=== PATIENT | female | born 1985 | race Caucasian/White ===

== ENCOUNTER 2018-08-02 14:01 | Emergency (ER) | payer OTHER, SELFPAY ==
[2018-08-02 14:04] VITALS: BP 140/82; PULSE 84; RESP 16; TEMP 37.1; O2SAT 100
--- NOTE | 2018-08-02 14:14 | W.ED.GENAD ---
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 Has a very superficial wound to the left lateral thumb that is 0.5cm. I placed a tourniquet and given how superficial it was cleaned it and placed skin adhesive on the wound. Will d/c, return precautions for infection given. Has full rom of the thumb and intact sensation so doubt tendon or nerve injury Differential Diagnosis left thumb avulsion, abrasion, lac HPI General Mode of arrival: ambulatory. Date/Time Provider Initiated Documentation: 08/02/18 14:03. Limitations to Documentation: no limitations. Information obtained by: patient. History of Present Illness 33 year old F presents to the emergency department with the chief complaint of left thumb injury, described as moderate, Quality is described as aching, and is localized to the left and upper extremity. Patient reports no radiation. Patient started experiencing this hour(s) (1) and it has been constant. No relieving factors improve symptom(s), No exacerbating factors reported . Patient did receive the following treatments prior to arrival, none Related Data Home Medications Medication Instructions Recorded Confirmed Unknown [No Known Home Meds] 08/02/18 08/02/18 Allergies Allergy/AdvReac Type Severity Reaction Status Date / Time promethazine Allergy Unknown Rash, Unverified 08/02/18 14:07 tongue swelling General Stated Complaint: Laceration ANA: 4 Review of Systems Review of Systems All systems reviewed & are unremarkable except as noted in HPI and below Constitutional Denies chills and Denies fever(s) Cardiovascular Denies chest pain and Denies dyspnea Respiratory Denies dyspnea Gastrointestinal Denies abdominal pain Genitourinary Denies dysuria Integumentary/Breasts Denies rash PFSH Family History Mother No problems noted. Father Substance abuse Sister No problems noted. Brother No problems noted. Brother No problems noted. Grandmother Essential hypertension Maternal Aunt Essential hypertension Medical History Anxiety Constipation Depression GERD (gastroesophageal reflux disease) HSV-2 (herpes simplex virus 2) infection Obesity Social History Smoking/Tobacco Use Status: Never Surgical History Spinal Surgery Exam Const General: no acute distress Orientation: alert HENMT Head: normal to inspection Ears: external ears normal General nose exam: external nose normal Mouth: moist mucous membranes Eyes General: appearance normal, both eyes and all related structures Neck Neck: normal visual inspection Resp Effort & Inspection: normal respiratory effort and able to speak in complete sentences Cardio Rate: regular rate Skin General skin exam: no rashes or lesions noted Neuro General: alert and oriented x3 Psych Mental Status: mental status grossly normal Course Vital Signs Temperature 37.1 C 08/02/18 14:04 Pulse 84 08/02/18 14:04 Respiratory Rate 16 08/02/18 14:04 Blood Pressure 140/82 08/02/18 14:04 Pulse Oximetry 100 08/02/18 14:04 Temperature 37.1 C 08/02/18 14:04 Pulse 84 08/02/18 14:04 Respiratory Rate 16 08/02/18 14:04 Respiratory Effort 08/02/18 14:06 Blood Pressure 140/82 08/02/18 14:04 Blood Pressure Position Sitting 08/02/18 14:04 Pulse Oximetry 100 08/02/18 14:04 Oxygen Delivery Method Room Air 08/02/18 14:04 Oxygen Flow Rate 0 08/02/18 14:04 Pain Level 5 08/02/18 14:04
--- NOTE | 2018-08-02 14:17 | ED.GENADUL_ITS ---
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 Has a very superficial wound to the left lateral thumb that is 0.5cm. I placed a tourniquet and given how superficial it was cleaned it and placed skin adhesive on the wound. Will d/c, return precautions for infection given. Has full rom of the thumb and intact sensation so doubt tendon or nerve injury Differential Diagnosis left thumb avulsion, abrasion, lac HPI General Mode of arrival: ambulatory . Date/Time Provider Initiated Documentation: 08/02/18 14:03 . Limitations to Documentation: no limitations . Information obtained by: patient . History of Present Illness 33 year old F presents to the emergency department with the chief complaint of left thumb injury, described as moderate, Quality is described as aching, and is localized to the left and upper extremity. Patient reports no radiation. Patient started experiencing this hour(s) (1) and it has been constant. No relieving factors improve symptom(s), No exacerbating factors reported . Patient did receive the following treatments prior to arrival, none Related Data Home Medications Medication Instructions Recorded Confirmed Unknown [No Known Home Meds] 08/02/18 08/02/18 Allergies Allergy/AdvReac Type Severity Reaction Status Date / Time promethazine Allergy Unknown Rash, Unverified 08/02/18 14:07 tongue swelling General Stated Complaint: Laceration ANA: 4 Review of Systems Review of Systems All systems reviewed & are unremarkable except as noted in HPI and below Constitutional Denies chills and Denies fever(s) Cardiovascular Denies chest pain and Denies dyspnea Respiratory Denies dyspnea Gastrointestinal Denies abdominal pain Genitourinary Denies dysuria Integumentary/Breasts Denies rash PFSH Family History Mother No problems noted. Father Substance abuse Sister No problems noted. Brother No problems noted. Brother No problems noted. Grandmother Essential hypertension Maternal Aunt Essential hypertension Medical History Anxiety Constipation Depression GERD (gastroesophageal reflux disease) HSV-2 (herpes simplex virus 2) infection Obesity Social History Smoking/Tobacco Use Status: Never Surgical History Spinal Surgery Exam Const General: no acute distress Orientation: alert HENMT Head: normal to inspection Ears: external ears normal General nose exam: external nose normal Mouth: moist mucous membranes Eyes General: appearance normal, both eyes and all related structures Neck Neck: normal visual inspection Resp Effort & Inspection: normal respiratory effort and able to speak in complete sentences Cardio Rate: regular rate Skin General skin exam: no rashes or lesions noted Neuro General: alert and oriented x3 Psych Mental Status: mental status grossly normal Course Vital Signs Temperature 37.1 C 08/02/18 14:04 Pulse 84 08/02/18 14:04 Respiratory Rate 16 08/02/18 14:04 Blood Pressure 140/82 08/02/18 14:04 Pulse Oximetry 100 08/02/18 14:04 Temperature 37.1 C 08/02/18 14:04 Pulse 84 08/02/18 14:04 Respiratory Rate 16 08/02/18 14:04 Respiratory Effort 08/02/18 14:06 Blood Pressure 140/82 08/02/18 14:04 Blood Pressure Position Sitting 08/02/18 14:04 Pulse Oximetry 100 08/02/18 14:04 Oxygen Delivery Method Room Air 08/02/18 14:04 Oxygen Flow Rate 0 08/02/18 14:04 Pain Level 5 08/02/18 14:04
== END 2018-08-02 14:31 | disposition home or self-care (01) ==
LOC: ER 14:33
PROVIDERS: Emergency Provider Emergency Medicine; PCP Nurse Practitioner Family
DX: S61.012A Laceration without foreign body of left thumb without damage to nail, initial encounter (principal); W26.0XXA Contact with knife, initial encounter
CPT/HCPCS: 12001

== ENCOUNTER 2018-10-28 16:54 | Outpatient (REF) | payer OTHER, SELFPAY ==
[2018-10-30 14:39] LABS: Chlamydia Result Negative; GC Result Negative; Specimen Description VAGINAL
== END 2018-10-28 17:14 ==
LOC: LBN 16:54
PROVIDERS: PCP Nurse Practitioner Family; Visit Provider Nurse Practitioner Family
DX: N89.8 Other specified noninflammatory disorders of vagina (principal); Z11.3 Encounter for screening for infections with a predominantly sexual mode of transmission
CPT/HCPCS: 87491; 87591; 87480; 87510; 87660

== ENCOUNTER 2019-06-15 15:21 | Emergency (ER) | payer OTHER, SELFPAY ==
[2019-06-15 15:30] VITALS: BP 142/77; PULSE 98; RESP 20; TEMP 36.8; O2SAT 98
--- NOTE | 2019-06-15 17:06 | DI.CT_ITS ---
EXAM: CT ABDOMEN PELVIS WO CLINICAL HISTORY: flank pain/rib pain left. TECHNIQUE: The exam was performed according to the usual protocol without intravenous contrast MATER IAL. COMPARISON: ABD PELVIS WO CONTRAST from 01/24/2016 FINDINGS: The liver is intact. The gallbladder is normal. There are no stones or ductal dilatation. There is mi ld haziness of the peripancreatic fat about the region of the pancreatic head, the pancreas is otherw ise unremarkable. The spleen and adrenals are unremarkable. The kidneys are normal. There is no ev idence of obstruction. Scattered colonic diverticula are identified, there is no evidence of diverti culitis. No evidence of an acute appendix. There is no evidence of free air or free fluid in the in traperitoneal space. There is no evidence of an abdominal aortic aneurysm. There is no lymphadenopa thy. The bladder is intact. A 2 cm right ovarian cyst is seen. Degenerative bony changes are identified with a vacuum disc at L 4-5 and lower lumbar posterior element degenerative changes. The soft tissue s are unremarkable. IMPRESSION: There is some stranding in the peripancreatic fat in the region of the pancreatic head. This could be seen in early pancreatitis, these findings to be correlated with the patient's clinical and laborato ry findings. There is no CT evidence of obstructive uropathy.
[2019-06-15 17:23] LABS: Bilirubin Negative (Negative); Blood Large (Negative); Clarity Clear (Clear); Glucose Negative (Negative); Ketones Negative (Negative); Leukocyte Esterase Negative (Negative); Nitrite Negative (Negative); Specific Gravity 1.025 (1.005-1.025); Urobilinogen 0.2 EU/dL (Up TO 0.2); pH 5.5 (5-8)
[2019-06-15 17:28] LABS: C & S Indicated? No
--- NOTE | 2019-06-15 18:40 | DI.VRAD_ITS ---
PROCEDURE INFORMATION: Exam: CT Abdomen and Pelvis Without Contrast Exam date and time: 06/15/2019 6:12 PM Clinical history: 34 years old, female; Abdominal pain; Other: Flank pain TECHNIQUE: Imaging protocol: Computed tomography of the abdomen and pelvis without contrast. COMPARISON: No relevant prior studies available. FINDINGS: Liver: Unenhanced liver appears unremarkable. Gallbladder and bile ducts: Gallbladder is normal. Pancreas: There is mild haziness of the peripancreatic fat about the region of the head of the pancreas. Pancreas is otherwise unremarkable. Spleen: Spleen is unremarkable. Adrenals: No adrenal mass is present. Kidneys and ureters: The kidneys have a normal unenhanced morphology without evidence of hydronephrosis. Stomach and bowel: There is scattered colonic diverticulosis without evidence of diverticulitis. Appendix: No evidence of appendicitis. Intraperitoneal space: Unremarkable. No free air. No significant fluid collection. Vasculature: Unremarkable. No abdominal aortic aneurysm. Lymph nodes: Unremarkable. No enlarged lymph nodes. Bladder: Unremarkable as visualized. Reproductive: 2 cm right ovarian cyst. Bones/joints: Degenerative disc disease with vacuum disc phenomenon L4-5 with lower lumbar posterior element degenerative changes. Soft tissues: Unremarkable. IMPRESSION: 1. Mild haziness of the peripancreatic fat about the region of head of pancreas. This can be seen in cases of early pancreatitis. Please correlate with the patient's laboratory findings and clinical exam. Old 2. No current CT evidence of obstructive uropathy. Dictated and Authenticated by: Hank Rivera MD. Ordering:AVA Connell MD
[2019-06-15] MEDS: Normal Saline 1,000 ML 1000 ML IV (18:58)
[2019-06-15] MEDS: Acetaminophen 500 MG TAB 1000 MG PO (19:02)
[2019-06-15 19:22] LABS: Abs Immature Grans 0.03 k/cumm (0.0-0.09); Absolute Eosinophil Count 0.12 k/cumm (0.0-0.7); Absolute Monocyte Count 0.71 k/cumm (0.11-0.7); Absolute Neutrophil Count 6.32 k/cumm (1.2-6.7); Basophils % 0.5; Eosinophils % 1.1; HCT 38.5 % (36.0-46.0); HGB 12.6 g/dL (12.0-15.5); Immature Grans % 0.3; Lymphocytes % 34.7; Mean Corp. HGB Concentration 32.7 g/dL (32.0-36.0); Mean Corpuscular Hemoglobin 26.3 pg (27.0-33.0); Mean Corpuscular Volume 80.2 fL (80-95); Mean Platelet Volume 9.2 fL (8.0-11.0); Monocytes % 6.4; Platelet Count 414 x1000/uL (130-400); RBC Distribution Width 14.9 % (11.7-14.6); White Blood Cell Count 11.08 k/cumm (4.4-10.8)
[2019-06-15 19:23] LABS: Absolute Basophil Count 0.06 k/cumm (0.0-0.2); Absolute Lymphocyte Count 3.84 k/cumm (1.2-3.4)
[2019-06-15 19:34] LABS: ALT 29 U/L (14-59); AST 8 U/L (15-37); Albumin 3.9 g/dL (3.4-5.0); Alkaline Phosphatase 80 U/L (46-116); Anion Gap 11.9 mmol/L (3-11); BUN 14 mg/dL (7-18); Bilirubin, Total 0.4 mg/dL (0.2-1.0); CO2 24.1 mmol/L (21.0-32.0); CREATININE 0.59 mg/dL (0.55-1.02); Calcium 8.8 mg/dL (8.5-10.1); Chloride 101 mmol/L (98-107); Glucose 88 mg/dL (70-100); Lipase 125 U/L (73-393); Potassium 3.5 mmol/L (3.5-5.1); Sodium 137 mmol/L (136-145); Total Protein 8.1 g/dL (6.4-8.2)
--- NOTE | 2019-06-15 19:45 | DI.RAD_ITS ---
EXAM: XR CHEST 2V PA LATERAL INDICATION: LT RIB PAIN COMPARISON: ABD FLAT UPRIGHT PA CHEST from 07/13/2011 TECHNIQUE: 2D digital imaging was performed. FINDINGS: The lungs are unremarkable. No pleural effusion or pneumothorax. The heart is not enlarged. Bony str uctures are unremarkable. IMPRESSION: No evidence of acute cardiopulmonary disease.
--- NOTE | 2019-06-15 20:04 | DI.VRAD_ITS ---
PROCEDURE INFORMATION: Exam: XR Chest, 2 Views Exam date and time: 06/15/2019 7:03 PM Clinical history: 34 years old, female; Chest wall pain; Prior surgery; Surgery date: 6+ months; Patient HX: L sided rib pain, PT placed a bb marker at site of pain. This pain has happened before since low back surgery TECHNIQUE: Imaging protocol: XR of the chest Views: 2 views. COMPARISON: No relevant prior studies available. FINDINGS: Lungs: Unremarkable. No consolidation. Pleural space: Unremarkable. No pleural effusion. No pneumothorax. Heart/Mediastinum: Unremarkable. No cardiomegaly. Bones/joints: Unremarkable. IMPRESSION: No evidence of active pulmonary disease. Dictated and Authenticated by: Hank Rivera MD. Ordering:AVA Connell MD
[2019-06-15 21:16] VITALS: BP 111/60; PULSE 80; RESP 18; O2SAT 95
--- NOTE | 2019-06-15 21:21 | ED.GENADUL_ITS ---
Discharge Plan Disposition Patient Disposition: HOME Condition: Good Discharge Details Chief Complaint: Chest/Rib Clinical Impression: Back pain Primary Care Provider: Rosalia Cabral ED Provider: Becki Elias Home Meds and New Rx's Prescriptions: New omeprazole 20 mg capsule,delayed release(DR/EC) 20 mg PO DAILY Qty: 14 RF: 0 Discharge Instructions Instructions: Back Pain (ED) Additional Instructions: Push fluids by mouth. Rest activities as tolerated. Follow-up with your primary care doctor tomorrow as scheduled regarding CAT scan finding of inflammatory changes near the head of the pancreas which are nonspecific. Avoid drinking alcohol. Use omeprazole as prescribed. Return for any worsening or concerns sooner if needed. Discharge Data Discharge Date/Time-TO BE ENTERED AT DEPARTURE: 06/15/19 21:40 Medical Decision Making Patient presents for concerns of left-sided back pain. Patient reports pain radiates out to the left lateral chest and left flank. Patient denies significant abdominal pain or ill feeling. Patient does report the pain is significantly worse with range of motion. Mildly reproducible with palpation along the chest wall. Patient denies palpitation, difficulty breathing shortness of breath or wheezing. On exam patient does have mild CVA tenderness on the left as well as blood in the urine on urinalysis. Discussed with patient conservative treatments versus CT evaluation and labs. She would prefer CT evaluation labs at this time. I do not feel she needs a chest CAT scan at this time. Believe chest x-ray is reasonable. Patient has nothing to indicate cardiovascular abnormalities given her symptoms and increase in pain with range of motion as well as CVA tenderness. PERC criteria - 0 : low risk no indication for Ddimer. Ultimately patient's CT evaluation does reveal inflammatory changes surrounding the head of the pancreas consistent with possible early pancreatitis. Patient's lipase is normal. Patient admits to drinking alcohol regularly possible chronic pancreatitis present. Patient received IV fluid in the emergency room. Patient has benign abdominal exam at this time. Vital signs are stable. Patient advised to stop drinking alcohol. Patient also reports very regular reflux. Discussed conservative treatments as well as use of omeprazole. Will trial omeprazole. Patient does not follow-up with her primary care doctor tomorrow during which time she can follow-up with CT findings. Patient is a plan of care HPI General Date/Time Provider Initiated Documentation: 06/15/19 17:04 . HPI Narrative: Patient presents for complaints of left chest and back pain. Patient reports she is concerned for worsening pain. Patient reports she has at the present present for several years intermittently certainly worse than last few days. Patient denies specific injury or trauma. Patient denies fever, chills. Patient reports pain is significantly worse with range of motion. Patient denies difficulty breathing or shortness of breath or wheezing. Patient is a non-smoker. Patient admits to alcohol regularly. Denies headache or dizziness. No urinary urgency, frequency or dysuria. No changes in bowels recently. Patient does report a history of lumbar spine surgery 3 years ago. Related Data Home Medications Medication Instructions Recorded Confirmed omeprazole 20 mg PO DAILY #14 cap 06/15/19 Previous Rx's Medication Instructions Recorded omeprazole 20 mg PO DAILY #14 cap 06/15/19 Allergies Allergy/AdvReac Type Severity Reaction Status Date / Time promethazine Allergy Unknown Rash, Unverified 06/15/19 15:32 tongue swelling General Stated Complaint: Chest/Rib ANA: 3 Review of Systems Review of Systems Narrative: CONSTITUTIONAL: The patient denies fevers, chills. EYES: Denies vision changes, blurry vision, or eye pain. ENT: Denies hearing changes, tinnitus, vertigo, sore throat. CARDIAC: Left lateral chest pain, no SOB. Denies palpitations. Denies difficulty breathing. RESPIRATORY: Denies cough, sputum. Denies difficulty breathing. GASTROINTESTINAL: Denies abdominal pain, changes in bowel, vomiting or nausea. GENITOURINARY: Denies dysuria, or frequency of urination. MUSCULOSKELETAL: Denies Joint pain, gait changes. Chest pain worse with range of motion NEUROLOGIC: Denies headaches, Denies focal weakness. Denies numbness. INTEGUMENT: Denies rashes. PSYCHIATRIC: Denies behavior changes. Denies anxiety or depression. ENDOCRINOLOGY: Denies fatigue. PSYCHIATRY: Denies depression, agitation or anxiety ROS Unobtainable: All systems reviewed & are unremarkable except as noted in HPI and below [facility] Medical History Anxiety Constipation Depression GERD (gastroesophageal reflux disease) HSV-2 (herpes simplex virus 2) infection Obesity Surgical History Spinal Surgery 2015. L4-5 decompression for herniated disc causing LE pain. [facility] [place]. Family History Mother No problems noted. Father Substance abuse EtOH Sister No problems noted. Brother No problems noted. Brother No problems noted. 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 Well hydrated. Alert and alert. HENMT: Head nomocephalic, normal to inspection. Atraumatic. Hearing grossly normal. EYES: General normal appearance. Alignment normal. Eyelids normal. Conjunctiva normal. NECK: Normal visual inspection. FROM. Trachea midline. No Midline tenderness. CHEST: Normal insepection of the chest. RESP: Normal respiratory effort. Speaking full sentences. No cough. No audible wheezing. No retractions. CARDIO: No JVD. Back; left CVA tenderness noted with palpation. Mild lumbar spine tenderness with palpation Abdomen; no significant abdominal pain with palpation. No distention. Bowel sounds present all 4 quadrants MUSCULOSKELETAL: Normal Gait. FROM of all extremities. SKIN: Normal. Dry. No rashes. NEURO: Alert and awake. Speech clear. PSYCH: Normal affect. Cooperative. Course Vital Signs Vital signs: Vital Signs Temperature 36.8 C 06/15/19 15:30 Pulse 98 H 06/15/19 15:30 Respiratory Rate 20 06/15/19 15:30 Blood Pressure 142/77 H 06/15/19 15:30 Pulse Oximetry 98 06/15/19 15:30 Temperature 36.8 C 06/15/19 15:30 Temperature Source Temporal Artery Scan 06/15/19 15:30 Pulse 80 06/15/19 21:16 Respiratory Rate 18 06/15/19 21:16 Respiratory Effort Non-Labored 06/15/19 17:37 Respiratory Depth Normal 09/24/19 17:37 Respiratory Pattern Normal 06/15/19 17:37 Blood Pressure 111/60 06/15/19 21:16 Blood Pressure Position Sitting 06/15/19 15:30 Pulse Oximetry 95 06/15/19 21:16 Oxygen Delivery Method Room Air 06/15/19 21:16 Oxygen Flow Rate 0 06/15/19 21:16 Pain Level 2 06/15/19 20:02 Lab/Test Results Lab/Test Results: Laboratory Tests Range/Units 06/15/19 06/15/19 06/15/19 16:35 18:50 18:50 WBC (4.4-10.8) k/cumm 11.08 H RBC (4.00-5.20) m/cumm 4.80 Hgb (12.0-15.5) g/dL 12.6 Hct (36.0-46.0) % 38.5 MCV (80-95) fL 80.2 MCH (27.0-33.0) pg 26.3 L MCHC (32.0-36.0) g/dL 32.7 RDW (11.7-14.6) % 14.9 H Plt Count (130-400) x1000/uL 414 H MPV (8.0-11.0) fL 9.2 Immature Gran % 0.3 Neutrophils % 57.0 Lymphocytes % 34.7 Monocytes % 6.4 Eosinophils % 1.1 Basophils % 0.5 Absolute Neutrophils (1.2-6.7) k/cumm 6.32 Absolute Lymphocytes (1.2-3.4) k/cumm 3.84 H Absolute Monocytes (0.11-0.7) k/cumm 0.71 H Absolute Eosinophils (0.0-0.7) k/cumm 0.12 Absolute Basophils (0.0-0.2) k/cumm 0.06 Sodium (136-145) mmol/L 137 Potassium (3.5-5.1) mmol/L 3.5 Chloride (98-107) mmol/L 101 Carbon Dioxide (21.0-32.0) mmol/L 24.1 Anion Gap (3-11) mmol/L 11.9 H BUN (7-18) mg/dL 14 Creatinine (0.55-1.02) mg/dL 0.59 Estimated GFR/1.73 m2 (mL/min/1.73m2) >= 60.00 Glucose (70-100) mg/dL 88 Calcium (8.5-10.1) mg/dL 8.8 Total Bilirubin (0.2-1.0) mg/dL 0.4 AST (15-37) U/L 8 L ALT (14-59) U/L 29 Alkaline Phosphatase (46-116) U/L 80 Total Protein (6.4-8.2) g/dL 8.1 Albumin (3.4-5.0) g/dL 3.9 Lipase (73-393) U/L 125 Urine Color (Yellow) Yellow Urine Clarity (Clear) Clear Urine pH (5-8) 5.5 Ur Specific [place] (1.005-1.025) 1.025 Urine Protein (Negative) mg/dL Negative Urine Ketones (Negative) mg/dL Negative Urine Blood (Negative) Large H Urine Nitrite (Negative) Negative Urine Bilirubin (Negative) Negative Urine Urobilinogen (Up TO 0.2) EU/dL 0.2 Ur Leukocyte Esterase (Negative) Negative Urine RBC Not Applicable Urine WBC Not Applicable Ur Epithelial Cells Not Applicable Urine Crystals Not Applicable Urine Bacteria Not Applicable Urine Mucus Not Applicable Ur Culture Indicated? No Urine Glucose (Negative) mg/dL Negative POC- Test(urine) Negative
[2019-06-15 21:38] VITALS: BP 111/60; PULSE 80; RESP 18; TEMP 36.8; O2SAT 95
[2019-06-15 23:03] LABS: Bacteria Negative HPF (Negative); Epithelial Cells Few HPF (Negative); RBC Negative (0-2)
[2019-06-15 23:04] LABS: Casts Negative LPF (Negative); Crystals Many Amorphous HPF (Negative); Mucus Negative (Negative)
[2019-06-15 23:06] LABS: WBC Negative HPF (0-5)
== END 2019-06-15 21:40 | disposition home or self-care (01) ==
PROVIDERS: Emergency Provider Physician Assistant; PCP Nurse Practitioner Family
DX: M54.6 Pain in thoracic spine (principal); R10.9 Unspecified abdominal pain; R07.89 Other chest pain; R93.5 Abnormal findings on diagnostic imaging of other abdominal regions, including retroperitoneum
CPT/HCPCS: 36415; 80053; 81025; 83690; 96360; 99285; 71046; 74176; 81003; 81015; 85025; 99284

== ENCOUNTER 2019-09-23 16:00 | Outpatient (REF) | payer OTHER, SELFPAY ==
[2019-09-23 19:12] LABS: Bilirubin Negative (Negative); Blood Moderate (Negative); Clarity Clear (Clear); Glucose Negative (Negative); Ketones Negative (Negative); Leukocyte Esterase Negative (Negative); Nitrite Negative (Negative); Specific Gravity 1.025 (1.005-1.025); Urobilinogen 0.2 EU/dL (Up TO 0.2)
[2019-09-23 19:35] LABS: Bacteria Rare HPF (Negative); C & S Indicated? C&S Done As Ordered; Crystals Negative HPF (Negative); Epithelial Cells Moderate HPF (Negative); Mucus Trace (Negative); WBC 0-2 HPF (0-5)
== END 2019-09-23 16:20 ==
LOC: LBN 16:00
PROVIDERS: PCP Nurse Practitioner Family; Visit Provider Nurse Practitioner Adult Health
DX: R30.0 Dysuria (principal)
CPT/HCPCS: 81003; 81015; 87086

== ENCOUNTER 2020-04-21 12:22 | Outpatient (REF) | payer OTHER, SELFPAY | END 2020-04-21 12:42 | LOC: LBN 12:22 | PROVIDERS: PCP Nurse Practitioner Adult Health; Visit Provider Nurse Practitioner Adult Health | DX: R35.0 Frequency of micturition (principal); R82.4 Acetonuria | CPT/HCPCS: 87086 ==

== ENCOUNTER 2021-02-13 02:26 | Outpatient (CLI) | payer OTHER, SELFPAY ==
--- NOTE | 2021-02-13 15:40 | DI.RAD_ITS ---
Exam(s) XR THORACIC SPINE COMPLETE EXAM: XR THORACIC SPINE COMPLETE CLINICAL HISTORY: M54.6 PAIN T-SPINE G89.29 CHRONIC PAIN R10.9 ABD PAIN. TECHNIQUE: 2D digital imaging was performed. COMPARISON: No exams were available for comparison FINDINGS: BONES: There is no fracture or destructive lesion. The vertebral bodies and posterior elements are un remarkable. DISKS:Mild to moderate biconvex scoliosis in the upper and mid thoracic spine.. Minimal degenerative disc changes. Interverebral disc spaces are maintained. SOFT TISSUE: Visualized lungs are clear. Heart size is normal. IMPRESSION: Scoliosis and mild degenerative changes. DATA REPOSITORY: RADIATION DOSE DELIVERED:
== END 2021-02-13 02:46 ==
PROVIDERS: PCP Nurse Practitioner Adult Health; Visit Provider Nurse Practitioner Adult Health
DX: M54.6 Pain in thoracic spine (principal); R10.9 Unspecified abdominal pain; G89.29 Other chronic pain; M51.34 Other intervertebral disc degeneration, thoracic region; M41.84 Other forms of scoliosis, thoracic region
CPT/HCPCS: 72072

== ENCOUNTER 2021-06-12 21:15 | Emergency (ER) | payer OTHER, SELFPAY ==
[2021-06-12 21:24] VITALS: BP 145/92; PULSE 90; RESP 18; TEMP 36.8; O2SAT 100
[2021-06-12 21:43] LABS: Bilirubin Negative (Negative); Blood Small (Negative); Clarity Sl Cloudy (Clear); Glucose Negative (Negative); Ketones Negative (Negative); Leukocyte Esterase Negative (Negative); Nitrite Negative (Negative)
--- NOTE | 2021-06-12 21:43 | ED.GENADUL_ITS ---
Discharge Plan Disposition Patient Disposition: HOME Condition: Stable Discharge Details Clinical Impression: Lower back pain, Cystitis Primary Care Provider: Melodie Glaser ED Provider: Altaf Hammond Home Meds and New Rx's Prescriptions: New nitrofurantoin monohyd/m-cryst [Macrobid] 100 mg capsule 100 mg PO Q12H 5 Days Qty: 10 RF: 0 Continued oxybutynin chloride 5 mg tablet 5 mg PO DAILY AM Qty: 90 RF: 3 acetaminophen 500 mg tablet 1,000 mg PO TID Qty: 42 RF: 0 naproxen 500 mg tablet 250 - 500 mg PO BID PRN (Reason: pain) Qty: 30 RF: 1 mupirocin 2 % ointment 1 applic topical TID PRN (Reason: boil/folliculitis (mild)) Qty: 15 RF: 0 Discharge Instructions Additional Instructions: Your urine showed some evidence of a possible infection you can take 1000mg tylenol and 600mg ibuprofen every 6 hours as needed for pain if symptoms continue follow up with your primary care provider within a week if you feel more ill, have severe worsening pain, fevers or persistent vomit return to the emergency department Medical Decision Making 36 yo female with hx of overactive bladder and gerd, comes in with a day of urinary frequency and bilateral lower back pain that radiates to the suprapubic abdomen. Denies fevers, vomit, chills, chest pain. She denies any trauma. She states the pain is 5/10. She has no cva tenderness, localizes the pain to the lower back bilaterally. no midline tenderness. no saddle anesthesia. normal gait. Denies ivdu. History is incosistent with kidney stone, suspect possible cystitis will obtain ua. She has no abdomen tenderness on exam so doubt surgical pathology such as appendicitis and no llq tenderness to suspect diverticulitis. If ua unremarkable will consider renal colic ct. ua has some bacteria, small red cells, given her symptoms will treat as possible cystitis with macrobid, no findings to suggest pyelo on exam or history. Discussed results with patient and after discussion with patient will hold on renal colic ct given she her history is unlikely to be akidney stone. she will follow up with her pcp if symptoms continue within a week and return precautions given Differential Diagnosis Differential Diagnosis: cystitis, bladder spasm, overactive bladder Medical Records Medical records reviewed: Yes I reviewed the patient's medical records. Lab Data Lab results reviewed: Yes I reviewed the patient's lab results. HPI General Mode of arrival: ambulatory . Date/Time Provider Initiated Documentation: 06/12/21 21:16 . Limitations to Documentation: no limitations . Information obtained by: patient . History of Present Illness 36 year old F presents to the emergency department with the chief complaint of low back pain, described as moderate, with intensity rated at 5. Quality is described as aching, and is localized to the back. Patient started experiencing this day(s) (1) and it has been intermittent. No relieving factors improve symptom(s), No exacerbating factors reported . Patient notes denies chest pain, fever/chills and nausea/vomiting. Patient did receive the following treatments prior to arrival, none Related Data Home Medications Medication Instructions Recorded Confirmed acetaminophen 500 mg tablet 1,000 mg PO TID #42 tab 12/27/19 06/12/21 oxybutynin chloride 5 mg tablet 5 mg PO DAILY AM #90 tab 06/28/20 06/12/21 naproxen 500 mg tablet 250 - 500 mg PO BID PRN #30 tab 02/12/21 06/12/21 mupirocin 2 % topical ointment 1 applic TOPICAL TID PRN #15 g 04/18/21 06/12/21 nitrofurantoin monohyd/m-cryst 100 mg PO Q12H 5 Days #10 cap 06/12/21 [Macrobid] Previous Rx's Medication Instructions Recorded acetaminophen 500 mg tablet 1,000 mg PO TID #42 tab 12/27/19 oxybutynin chloride 5 mg tablet 5 mg PO DAILY AM #90 tab 06/28/20 naproxen 500 mg tablet 250 - 500 mg PO BID PRN #30 tab 02/12/21 mupirocin 2 % topical ointment 1 applic TOPICAL TID PRN #15 g 04/18/21 nitrofurantoin monohyd/m-cryst 100 mg PO Q12H 5 Days #10 cap 06/12/21 [Macrobid] Allergies Allergy/AdvReac Type Severity Reaction Status Date / Time promethazine Allergy Unknown Rash, Verified 06/12/21 21:31 tongue swelling General Stated Complaint: FlankPain ANA: 3 Review of Systems All systems reviewed & are unremarkable except as noted in HPI and below Constitutional Constitutional: Denies chills and Denies fever(s) Cardiovascular Cardiovascular: Denies chest pain and Denies dyspnea Respiratory Respiratory: Denies cough and Denies dyspnea Gastrointestinal Gastrointestinal: Denies nausea and Denies vomiting Musculoskeletal Musculoskeletal: Denies joint swelling [facility] Medical History (Updated 06/12/21 @ 22:20 by Altaf Hammond MD) Anxiety Constipation Depression Folliculitis of right axilla GERD (gastroesophageal reflux disease) Herniated lumbar intervertebral disc (03/16/15) S/p L4-5 decompression 2014 HSV-2 (herpes simplex virus 2) infection (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 Father Substance abuse EtOH Sister No problems noted. Brother No problems noted. Brother No problems noted. 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 Pets and animals: Yes Pets and animals: gerbil(s) Sexually active: Yes Current gender identity: female What type of physical activity do you participate in: regular exercise Frequency: 5-6 times per week Do you feel safe at home: Yes Do you feel safe in your relationship?: Yes Exam Const General: no acute distress Orientation: alert HENNY Head: normal to inspection Ears: external ears normal General nose exam: external nose normal Mouth: moist mucous membranes Eyes General: appearance normal, both eyes and all related structures Neck Neck: normal visual inspection Resp Effort & Inspection: normal respiratory effort and able to speak in complete sentences Cardio Rate: regular rate GI Palpation: soft and nontender Back/Spine/Pelvis Back: no CVA tenderness Skin General skin exam: no rashes or lesions noted Neuro General: patient alert and patient oriented x3 Extrem General: normal to inspection Psych Mental Status: mental status grossly normal Course Vital Signs Vital signs: Vital Signs Temperature 36.8 C 06/12/21 21:24 Pulse 90 06/12/21 21:24 Respiratory Rate 18 06/12/21 21:24 Blood Pressure 145/92 H 06/12/21 21:24 Pulse Oximetry 100 06/12/21 21:24 Temperature 36.8 C 06/12/21 21:24 Temperature Source Temporal Artery Scan 06/12/21 21:24 Pulse 90 06/12/21 21:24 Respiratory Rate 18 06/12/21 21:24 Respiratory Effort 06/12/21 21:32 Blood Pressure 145/92 H 06/12/21 21:24 Blood Pressure Position Sitting 06/12/21 21:24 Pulse Oximetry 100 06/12/21 21:24 Pain Level 5 06/12/21 21:24 Lab/Test Results Lab/Test Results: 06/12/21 21:37 Urine - Clean Catch Urine Culture - Pending POC- Test(urine) Negative
[2021-06-12] MEDS: Ibuprofen 600 MG TAB PO (21:47)
[2021-06-12 22:06] LABS: Bacteria Rare HPF (Negative); C & S Indicated? C&S Done As Ordered; Crystals Negative HPF (Negative); Epithelial Cells Moderate HPF (Negative); Mucus Moderate (Negative); WBC Negative HPF (0-5)
[2021-06-12] MEDS: MacroBID 100 MG CAP PO (22:22)
[2021-06-12 22:25] VITALS: BP 132/76; PULSE 74; RESP 18; O2SAT 99
== END 2021-06-12 22:26 | disposition home or self-care (01) ==
PROVIDERS: Emergency Provider Emergency Medicine; PCP Nurse Practitioner Adult Health
DX: N30.00 Acute cystitis without hematuria (principal); M54.5 Low back pain
CPT/HCPCS: 81025; 99283; 81003; 81015; 87086

== ENCOUNTER 2021-06-22 11:00 | Outpatient (REF) | payer OTHER, SELFPAY ==
[2021-06-22 14:53] LABS: Bilirubin Negative (Negative); Blood Small (Negative); Clarity Clear (Clear); Glucose Negative (Negative); Ketones Negative (Negative); Leukocyte Esterase Negative (Negative); Nitrite Negative (Negative); Specific Gravity 1.025 (1.005-1.025); Urobilinogen 0.2 EU/dL (Up TO 0.2)
[2021-06-22 15:29] LABS: WBC Negative HPF (0-5)
[2021-06-22 15:30] LABS: Bacteria Negative HPF (Negative); C & S Indicated? No; Crystals Negative HPF (Negative); Epithelial Cells Few HPF (Negative); Mucus Negative (Negative)
== END 2021-06-22 11:01 | disposition home or self-care (01) ==
LOC: LBN 11:00
PROVIDERS: PCP Nurse Practitioner Adult Health; Visit Provider Nurse Practitioner Adult Health
DX: R31.9 Hematuria, unspecified (principal); R80.9 Proteinuria, unspecified
CPT/HCPCS: 81003; 81015

== ENCOUNTER 2021-09-11 18:51 | Outpatient (REF) | payer OTHER, SELFPAY ==
[2021-09-11 19:38] LABS: Bilirubin Negative (Negative); Blood Small (Negative); Clarity Cloudy (Clear); Glucose Negative (Negative); Ketones Negative (Negative); Leukocyte Esterase Negative (Negative); Nitrite Negative (Negative); Specific Gravity >= 1.030 (1.005-1.025); Urobilinogen 0.2 EU/dL (Up TO 0.2); pH 5.5 (5-8)
== END 2021-09-11 18:52 | disposition home or self-care (01) ==
LOC: LBN 18:51
PROVIDERS: PCP Nurse Practitioner Adult Health; Visit Provider Nurse Practitioner Adult Health
DX: R31.29 Other microscopic hematuria (principal)
CPT/HCPCS: 81003; 81015

== ENCOUNTER 2021-10-07 19:13 | Emergency (ER) | payer OTHER, SELFPAY ==
[2021-10-07 19:23] VITALS: BP 132/62; PULSE 98; RESP 18; TEMP 37.2; O2SAT 100
--- NOTE | 2021-10-07 19:53 | ED.GENADUL_ITS ---
Discharge Plan Disposition Patient Disposition: HOME Condition: Good Discharge Details Clinical Impression: URI (upper respiratory infection) Primary Care Provider: Melodie Glaser ED Provider: Zander Mccollum Home Meds and New Rx's Prescriptions: Continued acetaminophen 500 mg tablet 1,000 mg PO TID Qty: 42 RF: 0 mupirocin 2 % ointment 1 applic topical TID PRN (Reason: boil/folliculitis (mild)) Qty: 15 RF: 0 Discharge Instructions Instructions: Upper Respiratory Infection (ED) Additional Instructions: Please remain quarantined until your COVID-19 results are available. These can take typically 24 to 48 hours. Until then please drink plenty of fluids and take [id number] cold medication as needed. Feel free to return if you have any significant worsening of your symptoms, including severe chest pain, difficulty breathing, or other concerns. You may also contact your primary care provider for any further care needs. Stand Alone Forms: PENDING COVID-19 TESTING, Work Release Discharge Data Discharge Date/Time-TO BE ENTERED AT DEPARTURE: 10/07/21 20:50 Medical Decision Making Patient presenting to the clinic for chief complaint of pharyngitis . Patient reports symptoms stated today. Physical exam show no posterior pharynx or tonsillar erythema, no cervical lymphadenopathy, otherwise clear lung sounds and otherwise unremarkable exam. Patient has no signs of meningitis, peritonsillar abscess, retropharyngeal abscess, Feliz's angina, or life-threatening Airway infection. Conservative management discussed along with follow-up and return precautions. Centor score low so no strep preformed but Covid test sent. HPI General Mode of arrival: ambulatory . Date/Time Provider Initiated Documentation: 10/07/21 19:29 . Limitations to Documentation: no limitations . Information obtained by: patient . History of Present Illness 36 year old F presents to the emergency department with the chief complaint of Cold symptoms, described as mild, with intensity rated at 2. Quality is described as aching, and is localized to the mouth (throat). Patient reports no radiation. Patient started experiencing this day(s) (1) and it has been constant. No relieving factors improve symptom(s), No exacerbating factors reported . Patient did receive the following treatments prior to arrival, NSAID Related Data Home Medications Medication Instructions Recorded Confirmed acetaminophen 500 mg tablet 1,000 mg PO TID #42 tab 12/27/19 10/07/21 mupirocin 2 % topical ointment 1 applic TOPICAL TID PRN #15 g 04/18/21 10/07/21 Previous Rx's Medication Instructions Recorded acetaminophen 500 mg tablet 1,000 mg PO TID #42 tab 12/27/19 mupirocin 2 % topical ointment 1 applic TOPICAL TID PRN #15 g 04/18/21 Allergies Allergy/AdvReac Type Severity Reaction Status Date / Time promethazine Allergy Unknown Rash, Verified 10/07/21 19:29 tongue swelling General Stated Complaint: RespSymp ANA: 3 Review of Systems Constitutional Constitutional: Reports body ache(s), Reports chills, Reports fever(s), Reports headache(s) and Reports malaise Eyes Eyes: Denies eye discharge ENT Ears, Nose, Mouth, and Throat: Reports as per HPI, Denies ear discharge, Denies otalgia, Reports headache(s), Reports nasal congestion, Reports nasal discharge, Denies neck pain, Reports sinus pain, Reports sinus pressure, Reports sore throat and Denies throat swelling Cardiovascular Cardiovascular: Denies chest pain and Denies dyspnea Respiratory Respiratory: Reports cough and Denies dyspnea Musculoskeletal Musculoskeletal: Denies joint swelling and Denies neck pain Integumentary/Breasts Skin/Breast: Denies rash Neurologic Neurologic: Reports headache(s) Allergic/Immunologic Allergic/Immunologic: Denies throat swelling PFSH All Active Problems (Updated 10/07/21 @ 19:54 by Zander Mccollum NP) URI (upper respiratory infection) (Acute) Scoliosis of thoracic spine (Chronic) 01/2021 x-rays verified Overactive bladder (Acute) RX Oxybutynin effective (see chart note 05/16/2020) Microscopic hematuria (Chronic 01/17/16) 2015 & 2019 Obesity (BMI 30-39.9) (Acute) GERD (gastroesophageal reflux disease) (Chronic) Medical History (Updated 10/07/21 @ 19:54 by Zander Mccollum NP) Anxiety Constipation Depression Folliculitis of right axilla Herniated lumbar intervertebral disc (03/16/15) S/p L4-5 decompression 2015 HSV-2 (herpes simplex virus 2) infection (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 Father Substance abuse EtOH Sister No problems noted. Brother No problems noted. Brother No problems noted. 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 Pets and animals: Yes Pets and animals: gerbil(s) Sexually active: Yes Current gender identity: female What type of physical activity do you participate in: regular exercise Frequency: 5-6 times per week Do you feel safe at home: Yes Do you feel safe in your relationship?: Yes Exam Const General: cooperative, comfortable and no acute distress Orientation: alert and awake HENMT Head: normal to inspection, normocephalic and atraumatic Ears: hearing grossly normal bilaterally and TM's normal bilaterally General nose exam: external nose normal Face and sinus: no erythema and sinus tenderness ethmoid and maxillary Mouth: oral mucosae normal, no drooling, no muffled voice and no trismus Throat: posterior oropharynx normal Neck Neck: normal visual inspection, full ROM, no lymphadenopathy, no meningeal signs, trachea midline and supple Resp Effort & Inspection: normal respiratory effort, able to speak in complete sentences and cough Quality of cough: dry Auscultation: clear to auscultation bilaterally Cardio Rate: regular rate Rhythm: regular rhythm Heart Sounds: S1 normal, S2 normal, normal S1 and S2, no click, no gallops, no murmurs and no rubs Skin General skin exam: no rashes or lesions noted and dry skin (warm) Neuro General: patient alert, patient awake, patient oriented x3, gait normal and moves all extremities Cognition: normal cognition Speech: speech normal Course Vital Signs Vital signs: Vital Signs Temperature 37.2 C 10/07/21 19:23 Pulse 98 H 10/07/21 19:23 Respiratory Rate 18 10/07/21 19:23 Blood Pressure 132/62 10/07/21 19:23 Pulse Oximetry 100 10/07/21 19:23 Temperature 37.2 C 10/07/21 19:23 Temperature Source Oral 10/07/21 19:23 Pulse 98 H 10/07/21 19:23 Respiratory Rate 18 10/07/21 19:23 Respiratory Effort 10/07/21 19:30 Blood Pressure 132/62 10/07/21 19:23 Blood Pressure Position Sitting 10/07/21 19:23 Pulse Oximetry 100 10/07/21 19:23 Oxygen Delivery Method Room Air 10/07/21 19:23 Oxygen Flow Rate 0 10/07/21 19:23
[2021-10-09 11:29] LABS: COVID-19 RT-PCR UVMMC Result Negative (Negative)
== END 2021-10-07 20:50 | disposition home or self-care (01) ==
PROVIDERS: Emergency Provider Nurse Practitioner Family; PCP Nurse Practitioner Adult Health
DX: J06.9 Acute upper respiratory infection, unspecified (principal); Z20.822 Contact with and (suspected) exposure to COVID-19
CPT/HCPCS: 99282; U0003

== ENCOUNTER 2021-10-18 03:32 | Outpatient (CLI) | payer OTHER, SELFPAY ==
[2021-10-18 14:28] LABS: BUN 12 mg/dL (7-18); CREATININE 0.6 mg/dL (0.55-1.02); Calcium 8.7 mg/dL (8.5-10.1); Calculated LDL 115 mg/dL (<100); Chloride 102 mmol/L (98-107); Cholesterol 181 mg/dL (<200); Glucose 94 mg/dL (74-106); HDL Cholesterol 56 mg/dL (40-60); Potassium 4.1 mmol/L (3.5-5.1); Sodium 139 mmol/L (136-145); TSH (W/Ref FT4) 1.81 uIU/mL (0.36-3.74); Triglyceride 51 mg/dL (<150)
[2021-10-18 22:52] LABS: Hepatitis C Ab w Rflx HCV PCR Negative (Negative)
[2021-10-18 22:56] LABS: HIV-1/2 Ag & Ab Screen Negative (Negative)
== END 2021-10-18 03:33 | disposition home or self-care (01) ==
LOC: LBO 03:33
PROVIDERS: PCP Nurse Practitioner Adult Health; Visit Provider Nurse Practitioner Adult Health
DX: L74.510 Primary focal hyperhidrosis, axilla (principal); E66.8 Other obesity; Z11.4 Encounter for screening for human immunodeficiency virus [HIV]; Z13.1 Encounter for screening for diabetes mellitus; Z13.220 Encounter for screening for lipoid disorders; Z13.29 Encounter for screening for other suspected endocrine disorder; Z11.59 Encounter for screening for other viral diseases
CPT/HCPCS: 36415; 80048; 80061; 86803; 87389; 84443

== ENCOUNTER 2021-10-31 00:47 | Outpatient (CLI) | payer OTHER, SELFPAY ==
--- NOTE | 2021-10-31 09:00 | NS.NUTBLAN_ITS ---
Reason for visit: obesity; employee benefit for nutritional counseling. Assessment: Gricel presents for nutritional counseling for obesity. She reports that she has struggled with her weight for the past 10 years. A few years ago, she states that she was doing well with WW ([employer]) however Covid contributed to increased depression and she fell off track. Gricel endorses that depression plays heavily into her weight and eating habits as well as her physical activity. Gricel eats moderately most days. A yogurt for breakfast, chips and a cereal bar for lunch, almonds to hold her over until a late dinner, and a balanced dinner of protein, starch, vegetable. She drinks water and non- caloric beverages to stay hydrated. She does not snack. Gricel notes that her motivation to be physically active is diminished especially when she gets home from work at 1930. Gricel declines being weighed. She does not like to see her weight when she is weighed. There is a recent weight in [place] from September 2021. Nutrition Diagnosis: Class 3 (severe) obesity related to physiologic causes (depression, ?insulin resistance) and physical inactivity as evidenced by a BMI greater than 40. Intervention: We discussed the importance for Gricel to round out her breakfast and mid-day meal and to perhaps choose more whole foods. We reviewed the plate method to plan healthy meals and came up with examples of adding protein and healthy fats and vegetables. She stated she will trial the suggestions. Provided written materials regarding the plate method as well meal ideas, recipes, and tips to include more vegetables. Suggested that she add an MVI into her regimen, however she states that historically she does not tolerate MVI. We can address that issue at another visit if vitamin and mineral deficiency is suspected. With regard to her depression, I let her know that mental health counseling is out of my realm of qualifications, however addressing depression can be helpful for weight management and overall better physical health. She stated she would consider adding some counseling into her health plan. Finally, we talked about increasing physical activity. She does like to walk but not at night. Suggested that she walk before work as she doesn't go in until 11:00. Gricel stated she will trial that as well as she thought it was a good idea. Monitoring and Evaluation: Gricel is going to self monitor how she feels and how her clothes fit to evaluate the adequacy of her nutrition care plan as well as the two action plans that she came up with: 1. Add protein to breakfast and lunch. 2. Walk two days this week for 30 minutes before her shift. Gricel will assess her weight loss progress by how she feels and how her clothes fit. Gricel will follow up with me and keep me updated as to her progress.
== END 2021-10-31 00:48 | disposition home or self-care (01) ==
LOC: DS 00:48
PROVIDERS: PCP Nurse Practitioner Adult Health; Visit Provider Dietitian, Registered
DX: E66.8 Other obesity (principal); Z68.41 Body mass index [BMI] 40.0-44.9, adult; Z71.3 Dietary counseling and surveillance
CPT/HCPCS: 97802

== ENCOUNTER 2022-02-11 11:43 | Outpatient (REF) | payer OTHER, SELFPAY | END 2022-02-11 11:44 | disposition home or self-care (01) | LOC: LBN 11:43 | PROVIDERS: PCP Nurse Practitioner Adult Health; Visit Provider Family Medicine | DX: N89.8 Other specified noninflammatory disorders of vagina (principal) | CPT/HCPCS: 87480; 87510; 87660 ==

== ENCOUNTER 2022-02-25 14:10 | Outpatient (REF) | payer OTHER, SELFPAY ==
--- NOTE | 2022-02-25 13:30 | PAPFT_PTH ---
PATIENT: Gricel Hinds LOC: [facility] U#:[id number] AGE/SX: 37/F ROOM: RE02/25/[address]: Melodie Glaser APRN : 1985 BED: DIS: 02/25/2022 SPEC #: [id number] RECD: 02/25/22 15:24 STATUS: TRISTA REReed #: [id number] JACLYN: 02/25/22 13:[address]: Melodie Glaser DEPT: [facility] Cytology RECD BY: Dominique Ivory Tissues: 1 - CX/ENDOCX FOR PAP SMEARS Procedures: PAP THIN PREP/UVM Screening HPV DNA PROBE Comments: [id number]
[2022-02-26 14:44] LABS: Chlamydia Result Negative (Negative); GC Result Negative (Negative)
== END 2022-02-25 14:11 | disposition home or self-care (01) ==
LOC: LBN 14:10
PROVIDERS: PCP Nurse Practitioner Adult Health; Visit Provider Nurse Practitioner Adult Health
DX: Z11.3 Encounter for screening for infections with a predominantly sexual mode of transmission (principal); Z12.4 Encounter for screening for malignant neoplasm of cervix; Z11.51 Encounter for screening for human papillomavirus (HPV); N89.8 Other specified noninflammatory disorders of vagina
CPT/HCPCS: 87491; 87591; 88142; 87480; 87510; 87624; 87660

== ENCOUNTER 2022-06-20 01:30 | Emergency (ER) | payer OTHER, SELFPAY ==
[2022-06-20 01:38] VITALS: BP 127/76; PULSE 102; RESP 18; TEMP 36.9; O2SAT 100
--- NOTE | 2022-06-20 01:41 | ED.GENADUL_ITS ---
Discharge Plan Disposition Patient Disposition: HOME Condition: Good Discharge Details Clinical Impression: URI with cough and congestion Primary Care Provider: Melodie Glaser ED Provider: Primitivo Fajardo [place] Meds and New Rx's Prescriptions: New benzonatate 100 mg capsule 100 mg PO TID PRN (Reason: cough) Qty: 14 0RF Discharge Instructions Instructions: Upper Respiratory Infection (ED) Additional Instructions: You were seen for cough and congestion likely related to viral URI. Your vital signs and oxygenation as well as exam are reassuring. COVID testing has been sent out. You should isolate until results are returned. Rest and drink plenty of fluids. Alternate acetaminophen with ibuprofen for fever and discomfort. Use benzonatate for cough as needed. Follow-up with primary care 1 to 2 weeks if not improving. Return to ED for mental status changes, difficulty breathing, persistent chest pain, vomiting, other concerns. Stand Alone Forms: PENDING COVID-19 TESTING Medical Decision Making Patient presenting with URI with chief complaint of cough keeping her awake and causing chest pain with cough. Will swab and send out for COVID. Try Tessalon Perles for cough. Alternate acetaminophen with ibuprofen for fever and discomfort. Rest and drink plenty of fluids. Isolate until COVID results back. Follow-up with primary care 1 to 2 weeks if not improved. Return precautions provided. HPI General Mode of arrival: ambulatory . Date/Time Provider Initiated Documentation: 06/20/22 01:41 . Limitations to Documentation: no limitations . Information obtained by: patient and RN notes reviewed . HPI Narrative: Patient presents to ED with complaint of cough, congestion, runny nose, sore throat which began 1 day ago. She has been unable to sleep tonight because of persistent coughing. She has pain in her upper chest with coughing. Otherwise no pain and no shortness of breath. She has had no fever that she is aware of. She denies headache or earache. She denies any GI symptoms. She is vaccinated for COVID with 1 booster. She did not do a home COVID test. She has tried fqqm-[id number] cough and cold medications without relief. Related Data Home Medications Medication Instructions Recorded Confirmed benzonatate 100 mg capsule 100 mg PO TID PRN cough #14 caps 06/20/22 Previous Rx's Medication Instructions Recorded benzonatate 100 mg capsule 100 mg PO TID PRN cough #14 caps 06/20/22 Allergies Allergy/AdvReac Type Severity Reaction Status Date / Time promethazine Allergy Unknown Rash, Verified 06/20/22 01:41 tongue swelling General Stated Complaint: RespSymp ANA: 3 Review of Systems Narrative: 02/02 Review of Systems completed and is negative except as stated above in HPI (Systems reviewed: Const, Resp, CV, GI, Neuro) PFSH All Active Problems URI with cough and congestion (Acute) Current vaping on some days (Acute) Microscopic hematuria (Chronic 01/17/16) 2015 & 2018 Obesity (BMI 30-39.9) (Acute) Medical History Anxiety Constipation Depression GERD (gastroesophageal reflux disease) Herniated lumbar intervertebral disc (03/16/15) S/p L4-5 decompression 2014 HSV-2 (herpes simplex virus 2) infection (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 Overactive bladder RX Oxybutynin effective (see chart note 05/16/2020) Scoliosis of thoracic spine 01/2021 x-rays verified Surgical History Spinal Surgery (~2014) L4-5 decompression for herniated disc causing LE pain ([facility] [place]) Family History Father Substance abuse EtOH Grandmother Essential hypertension Maternal Aunt Essential hypertension Social History Smoking/Tobacco Use Status: Current-Occasional Tobacco Type: e-cigarettes Quit status: has quit before Smoking risk assessment performed?: Yes Alcohol Intake: current Alcohol Intake frequency: a few times a month Drug use: Never Substance use type: does not use Adopted: No Household members: spouse Housing: apartment Number of Children: 0 Communication Needs: None Education Level: high school Do you need help understanding health information?: Never 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 [employer] Pets and animals: Yes Pets and animals: cat(s) Sexually active: Yes Do you think of yourself as: bisexual Current gender identity: female What is your relationship status?: How often do you talk on the phone with friends or family?: once per week How often do you get together with friends or relatives?: twice per week Do you belong to any clubs or organized social groups?: no Panel score (0-1 are the most socially isolated patients): 2 What type of physical activity do you participate in: walking Duration: 15-30 minutes/day Frequency: 3-4 times per week Special freeman needs: No Seatbelt use: always Drive intox or ride w/intox milk tanker driver: No Do you feel safe at home: Yes Do you feel safe in your relationship?: Yes Exam Narrative Exam Narrative: Const: Obese female in NAD. HEENT: NC/AT. Normal facial exam. TMs clear bilaterally. Oropharynx clear. Clear nasal discharge present. Eyes: Normal conjunctiva and sclera. Neck: Supple. Trachea midline. Lungs: Normal respiratory effort. Lungs are clear. Cor: RRR without murmur/gallop. Good radial pulses. Neuro: A+O x 3. Normal speech, mentation, gait. Cranial nerves II - XII grossly intact. No gross motor or sensory deficit. Ext: No C/C/E. Skin: Warm and dry without rash. Course Vital Signs Vital signs: Vital Signs Temperature 98.5 F 06/20/22 01:38 Pulse 102 H 06/20/22 01:38 Respiratory Rate 18 06/20/22 01:38 Blood Pressure 127/76 06/20/22 01:38 Pulse Oximetry 100 06/20/22 01:38 Temperature 98.5 F 06/20/22 01:38 Temperature Source Oral 06/20/22 01:38 Pulse 102 H 06/20/22 01:38 Respiratory Rate 18 06/20/22 01:38 Blood Pressure 127/76 06/20/22 01:38 Pulse Oximetry 100 06/20/22 01:38 Pain Level 5 06/20/22 01:38
[2022-06-20] MEDS: Benzonatate 100 MG CAP PO (02:10)
[2022-06-20] MEDS: Ibuprofen 600 MG TAB PO (02:10)
[2022-06-21 15:02] LABS: COVID-19 RT-PCR UVMMC Result Positive (Negative)
== END 2022-06-20 02:14 | disposition home or self-care (01) ==
LOC: ER 02:13
PROVIDERS: Emergency Provider Emergency Medicine; PCP Nurse Practitioner Adult Health
DX: U07.1 COVID-19 (principal); J06.9 Acute upper respiratory infection, unspecified
CPT/HCPCS: 99283; U0003; 99284

== ENCOUNTER 2022-11-21 11:06 | Outpatient (REF) | payer OTHER, SELFPAY ==
[2022-11-21 15:13] LABS: Epithelial Cells Moderate HPF (Negative); RBC 0-2 HPF (0-2); WBC Negative HPF (0-5)
[2022-11-21 15:14] LABS: Bacteria Few HPF (Negative); C & S Indicated? No; Casts Negative LPF (Negative); Crystals Negative HPF (Negative); Mucus Negative (Negative)
== END 2022-11-21 11:07 | disposition home or self-care (01) ==
LOC: LBN 11:06
PROVIDERS: PCP Nurse Practitioner Adult Health; Referring Provider Student in an Organized Health Care Education/Training Program; Visit Provider Student in an Organized Health Care Education/Training Program
DX: R31.29 Other microscopic hematuria (principal); N76.0 Acute vaginitis; B96.89 Other specified bacterial agents as the cause of diseases classified elsewhere
CPT/HCPCS: 81015

== ENCOUNTER 2022-12-08 21:28 | Emergency (ER) | payer OTHER, SELFPAY ==
[2022-12-08 21:32] VITALS: BP 157/87; PULSE 92; RESP 16; O2SAT 99
--- NOTE | 2022-12-08 21:45 | ED.GENADUL_ITS ---
Discharge Plan Disposition Patient Disposition: Home Condition: Stable Discharge Details Clinical Impression: Diarrhea Primary Care Provider: Melodie Glaser ED Provider: Yumiko Richmond Home Meds and New Rx's Prescriptions: No Action oxybutynin chloride 5 mg tablet extended release 24hr 5 mg PO DAILY Qty: 90 4RF magnesium oxide 400 mg magnesium tablet 400 mg PO DAILY Qty: 90 1RF Rx Instructions: headache prevention Discharge Instructions Instructions: Acute Diarrhea (ED) Additional Instructions: Follow up with primary care provider in 3-5 days. Return to ED sooner if any worsening or concerns. Increase oral fluids. Please take Tylenol or Ibuprofen with food every 4-6 hours as needed for pain and swelling. Referrals: Melodie Glaser, [employer]NER [Primary Care Provider] - 5 days Discharge Data Discharge Date/Time-TO BE ENTERED AT DEPARTURE: 12/08/22 23:46 Medical Decision Making 37-year-old female presents to the ER with chief complaint of nausea and diarrhea which began this afternoon. Patient reports that she felt dizzy after having approximately 6 episodes of diarrhea. She denies any hematochezia or blood in her stool she reports feeling feverish but no documented fever. Denies any vomiting. She is complaining of some left-sided flank pain which is not elicited on my exam. She does have a past medical history of scoliosis, GERD, depression, obesity, constipation anxiety. Labs ordered including CBC CMP urinalysis. Patient reevaluation, she reports she feels much better after the fluid she is received approximately 500 cc of normal saline she reports the dizziness has subsided. I did discuss her labs with her, awaiting her urine at this time. Plan is to discharge home. Labs within normal limits. This text was generated using [employer] system, please disregard any od dities of phrase or misspellings. Lab Data Lab results reviewed: Yes I reviewed the patient's lab results. Labs: Laboratory Tests Range/Units 12/08/22 12/08/22 22:15 22:15 WBC (4.4-10.8) 10^3/uL 8.47 RBC (3.93-5.22) 10^6/uL 4.52 Hgb (11.2-15.7) g/dL 11.9 Hct (36.0-46.0) % 36.7 MCV (80-95) fL 81 MCH (27.0-33.0) pg 26.3 L MCHC (32.0-36.0) % 32.4 RDW (11.7-14.6) % 14.4 Plt Count (130-400) 10^3/uL 337 MPV (8.0-11.0) fL 8.8 Immature Gran % 0.2 Neutrophils % 55.9 Lymphocytes % 33.9 Monocytes % 7.8 Eosinophils % 1.5 Basophils % 0.7 Nucleated RBC % (0.0-0.3) % 0.0 Absolute Neutrophils (1.2-6.7) 10^3/uL 4.73 Absolute Lymphocytes (1.2-3.4) 10^3/uL 2.87 Absolute Monocytes (0.1-0.8) 10^3/uL 0.66 Absolute Eosinophils (0.0-0.7) 10^3/uL 0.13 Absolute Basophils (0.0-0.2) 10^3/uL 0.06 Sodium (136-145) mmol/L 136 Potassium (3.5-5.1) mmol/L 3.5 Chloride (98-107) mmol/L 103 Carbon Dioxide (21.0-32.0) mmol/L 26.1 Anion Gap (3-11) mmol/L 6.9 BUN (7-18) mg/dL 13 Creatinine (0.55-1.02) mg/dL 0.6 Est GFR (CKD-EPI 2020) (mL/min/1.73m2) 119.97 Glucose (74-106) mg/dL 101 Calcium (8.5-10.1) mg/dL 8.4 L Magnesium (1.8-2.4) mg/dL 1.9 Total Bilirubin (0.2-1.0) mg/dL 0.2 AST (15-37) U/L 6 L ALT (14-59) U/L 28 Alkaline Phosphatase (46-116) U/L 71 Total Protein (6.4-8.2) g/dL 7.1 Albumin (3.4-5.0) g/dL 3.4 HPI General Mode of arrival: ambulatory . Date/Time Provider Initiated Documentation: 12/08/22 21:29 . Limitations to Documentation: no limitations . Information obtained by: patient, RN notes reviewed and old records reviewed . HPI Narrative: 37-year-old female presents to the ER with chief complaint of nausea and diarrhea which began this afternoon. Patient reports that she felt dizzy after having approximately 6 episodes of diarrhea. She denies any hematochezia or blood in her stool she reports feeling feverish but no documented fever. Denies any vomiting. She is complaining of some left-sided flank pain which is not elicited on my exam. She does have a past medical history of scoliosis, GERD, depression, obesity, constipation anxiety. Related Data Home Medications Medication Instructions Recorded Confirmed magnesium oxide 400 mg PO DAILY #90 tabs 11/25/22 11/25/22 oxybutynin chloride 5 mg 5 mg PO DAILY #90 tabs 11/25/22 11/25/22 tablet,extended release 24 hr Previous Rx's Medication Instructions Recorded magnesium oxide 400 mg PO DAILY #90 tabs 11/25/22 oxybutynin chloride 5 mg 5 mg PO DAILY #90 tabs 11/25/22 tablet,extended release 24 hr Allergies Allergy/AdvReac Type Severity Reaction Status Date / Time promethazine Allergy Unknown Rash, Verified 11/25/22 15:17 tongue swelling General Stated Complaint: Nausea/Vomit/Diar ANA: 3 Review of Systems All systems reviewed & are unremarkable except as noted in HPI and below Gastrointestinal Gastrointestinal: Reports diarrhea, Reports nausea and Denies vomiting PFSH All Active Problems (Updated 12/08/22 @ 23:15 by Yumiko Richmond, HARRY) Diarrhea (Acute) Quit smoking within past year (Acute) Current vaping on some days (Acute ~05/2022) Quit July .. Hx of urinary frequency (Acute) trying OAB meds .. Bacterial vaginosis (Acute) #3, January 2022, 2019 (?) before that? pH assoc? Probiotics seem to have helped. Post-COVID chronic headache (Acute ~05/2022) Microscopic hematuria (Chronic 01/17/16) 2016 & 2019 Obesity (BMI 30-39.9) (Acute) Medical History Anxiety Constipation COVID-19 (~06/20/22) Depression GERD (gastroesophageal reflux disease) Herniated lumbar intervertebral disc (03/16/15) S/p L4-5 decompression 2014 HSV-2 (herpes simplex virus 2) infection (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 Overactive bladder RX Oxybutynin effective (see chart note 05/16/2020) Scoliosis of thoracic spine 01/2021 x-rays verified Surgical History Spinal Surgery (~2014) [place]5 [place] [place] Family History Father Substance abuse EtOH Grandmother Essential hypertension Maternal Aunt Essential hypertension Social History Smoking/Tobacco Use Status: Current-Occasional Tobacco Type: e-cigarettes Quit status: has quit before Smoking risk assessment performed?: Yes Alcohol Intake: current Alcohol Intake frequency: a few times a month Drug use: Never Substance use type: does not use Adopted: No Household members: spouse Housing: apartment Number of Children: 0 Communication Needs: None Education Level: high school Do you need help understanding health information?: Never 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 [employer] Pets and animals: Yes Pets and animals: cat(s) Sexually active: Yes Do you think of yourself as: bisexual Current gender identity: female What is your relationship status?: How often do you talk on the phone with friends or family?: once per week How often do you get together with friends or relatives?: twice per week Do you belong to any clubs or organized social groups?: no Panel score (0-1 are the most socially isolated patients): 2 What type of physical activity do you participate in: walking Duration: 15-30 minutes/day Frequency: 3-4 times per week Special freeman needs: No Seatbelt use: always Drive intox or ride w/intox entry level truck driver: No Do you feel safe at home: Yes Do you feel safe in your relationship?: Yes Exam Narrative Exam Narrative: Constitutional: Alert and oriented x3. Appears stated age. Normal body habitus. Head: Normocephalic, no trauma. Eyes: Pupils PERRL, Red reflex noted, EOM's intact. Eyelids symmetrical without lesions, discharge, or swelling. ENT: Bilateral TM's WNL, External ear normal to inspection, no mastoid TTP, swelling, or erythema, Nasal turbinates WNL, no nasal discharge. Normal dentition, Posterior pharynx WNL, no exudate. Chest: RRR, Normal S1, S2, distal pulses intact. Resp: Lungs clear to auscultation bilaterally, no wheezes, rales, or rhonchi. Abdomen: Soft, non-distended, Normoactive bowel sounds all 4 quads. Musculoskeletal: Normal gait, 5/5 strength to all four extremities. Skin: No suspicious rashes or lesions. Capillary refill less than 2 sec. Neurologic: Cranial nerves II-XII intact. Alert and oriented x 3. Motor: No deficits noted. Sensory: Intact bilaterally all 4 extremities. Reflexes: DTR's intact bilaterally.. Hematologic/Lymphatic: No ecchymosis, no lymphadenopathy. Course Vital Signs Vital signs: Vital Signs Pulse 92 H 12/08/22 21:32 Respiratory Rate 16 12/08/22 21:32 Blood Pressure 157/87 H 12/08/22 21:32 Pulse Oximetry 99 12/08/22 21:32 Pulse 92 H 12/08/22 21:32 Respiratory Rate 16 12/08/22 21:32 Respiratory Effort Normal 12/08/22 21:35 Blood Pressure 157/87 H 12/08/22 21:32 Blood Pressure Position Sitting 12/08/22 21:32 Pulse Oximetry 99 12/08/22 21:32 Oxygen Delivery Method Room Air 12/08/22 21:32 Oxygen Flow Rate 0 12/08/22 21:32 Pain Level 5 12/08/22 21:32
[2022-12-08 22:18] LABS: Abs Immature Grans 0.02 10^3/uL (0.0-0.06); Absolute Basophil Count 0.06 10^3/uL (0.0-0.2); Absolute Eosinophil Count 0.13 10^3/uL (0.0-0.7); Absolute Lymphocyte Count 2.87 10^3/uL (1.2-3.4); Absolute Monocyte Count 0.66 10^3/uL (0.1-0.8); Absolute Neutrophil Count 4.73 10^3/uL (1.2-6.7); Basophils % 0.7; Eosinophils % 1.5; HCT 36.7 % (36.0-46.0); HGB 11.9 g/dL (11.2-15.7); Immature Grans % 0.2; Lymphocytes % 33.9; MCH 26.3 pg (27.0-33.0); MCHC 32.4 % (32.0-36.0); MCV 81 fL (80-95); MPV 8.8 fL (8.0-11.0); Monocytes % 7.8; Neutrophils % 55.9; Platelet Count 337 10^3/uL (130-400); RBC 4.52 10^6/uL (3.93-5.22); RDW 14.4 % (11.7-14.6); RDW-SD 41.7 fL; WBC 8.47 10^3/uL (4.4-10.8)
[2022-12-08] MEDS: Ondansetron 4 MG/2 ML VIAL IVP (22:31)
[2022-12-08] MEDS: Normal Saline 1,000 ML 1000 ML IV (22:32)
[2022-12-08 22:42] LABS: ALT 28 U/L (14-59); AST 6 U/L (15-37); Albumin 3.4 g/dL (3.4-5.0); Alkaline Phosphatase 71 U/L (46-116); Anion Gap 6.9 mmol/L (3-11); BUN 13 mg/dL (7-18); Bilirubin, Total 0.2 mg/dL (0.2-1.0); CO2 26.1 mmol/L (21.0-32.0); CREATININE 0.6 mg/dL (0.55-1.02); Calcium 8.4 mg/dL (8.5-10.1); Chloride 103 mmol/L (98-107); Estimated GFR 119.97 (mL/min/1.73m2); Glucose 101 mg/dL (74-106); Magnesium 1.9 mg/dL (1.8-2.4); Potassium 3.5 mmol/L (3.5-5.1); Sodium 136 mmol/L (136-145); Total Protein 7.1 g/dL (6.4-8.2)
[2022-12-08 23:06] LABS: Bilirubin Negative (Negative); Blood Small (Negative); Clarity Clear (Clear); Glucose Negative (Negative); Ketones Negative (Negative); Leukocyte Esterase Negative (Negative); Nitrite Negative (Negative); Urobilinogen 0.2 mg/dL (Up to 0.2)
[2022-12-08 23:14] LABS: Bacteria Rare HPF (Negative); C & S Indicated? No; Crystals Negative HPF (Negative); Epithelial Cells Rare HPF (Negative); Mucus Negative (Negative); RBC 0-2 HPF (0-2); WBC 0-2 HPF (0-5)
[2022-12-08 23:44] VITALS: BP 121/51; PULSE 92; RESP 24; O2SAT 97
== END 2022-12-08 23:46 | disposition home or self-care (01) ==
PROVIDERS: Emergency Provider Registered Nurse Emergency; PCP Nurse Practitioner Adult Health
DX: R19.7 Diarrhea, unspecified (principal); R11.0 Nausea; R42 Dizziness and giddiness; R10.9 Unspecified abdominal pain; Z86.16 Personal history of COVID-19
CPT/HCPCS: 80053; 96361; 96374; 99284; 81003; 81015; 83735; 85025; J2405

== ENCOUNTER 2023-02-26 17:59 | Emergency (ER) | payer OTHER, SELFPAY ==
[2023-02-26 18:03] VITALS: BP 148/102; PULSE 93; RESP 18; TEMP 36.8; O2SAT 98
--- NOTE | 2023-02-26 18:27 | W.ED.GENAD ---
Discharge Plan Disposition Patient Disposition: Home Condition: Stable Discharge Details Clinical Impression: URI (upper respiratory infection), Elevated blood pressure reading Primary Care Provider: Melodie Glaser ED Provider: Leo Cross Home Meds and New Rx's Prescriptions: Continued topiramate 25 mg tablet 25 mg PO DAILY Qty: 90 3RF oxybutynin chloride 5 mg tablet extended release 24hr 5 mg PO DAILY Qty: 90 4RF ondansetron 4 mg tablet,disintegrating 4 mg PO TID PRN (Reason: nausea and vomiting) Qty: 15 0RF Discharge Instructions Instructions: Upper Respiratory Infection (ED) Additional Instructions: Your blood pressure is elevated today please be sure to discuss this with your doctor. Please maintain home isolation until COVID test is resulted and negative. COVID test is pending at time of discharge. Please drink plenty of fluid and allow for plenty of rest. Please contact your primary care physician to arrange follow-up. Return to the ER immediately for any worsening or new concerning symptoms. Stand Alone Forms: Work Release Referrals: Melodie Glaser, [employer] [Primary Care Provider] - Medical Decision Making 38-year-old female here with URI symptoms for the past 6 days. Patient saturating well in no respiratory distress. No signs of focal bacterial infection on exam. Consider COVID given recent exposure to coworker. Rapid COVID testing negative. Plan to send PCR. Usual customary discharge instructions reviewed with the patient. Patient was informed that her blood pressure was slightly elevated today and instructed to follow-up with her PCP. HPI General Date/Time Provider Initiated Documentation: 02/26/23 18:15. Limitations to Documentation: no limitations. Information obtained by: patient. HPI Narrative: 38-year-old female here with chief complaint of cough. Patient notes she has had cough over the past 5 to 6 days. She has associated sore throat. She notes she is feeling better today but is concerned because coworker was positive for COVID and she has persistent symptoms. She has taken home COVID test that were negative. Patient denies associated shortness of breath. She does note she may have had a slight fever earlier in the illness. Related Data Home Medications Medication Instructions Recorded Confirmed oxybutynin chloride 5 mg 5 mg PO DAILY #90 tabs 11/25/22 02/26/23 tablet,extended release 24 hr ondansetron 4 mg disintegrating 4 mg PO TID PRN nausea and 12/11/22 02/26/23 tablet vomiting #15 tab-caps topiramate 25 mg tablet 25 mg PO DAILY migraine prevention 02/03/23 02/26/23 #90 tabs Previous Rx's Medication Instructions Recorded oxybutynin chloride 5 mg 5 mg PO DAILY #90 tabs 11/25/22 tablet,extended release 24 hr ondansetron 4 mg disintegrating 4 mg PO TID PRN nausea and 12/11/22 tablet vomiting #15 tab-caps topiramate 25 mg tablet 25 mg PO DAILY migraine prevention 02/03/23 #90 tabs Allergies Allergy/AdvReac Type Severity Reaction Status Date / Time promethazine Allergy Unknown Rash, Verified 02/26/23 18:07 tongue swelling General Stated Complaint: RespSymp ANA: 4 Review of Systems All systems reviewed & are unremarkable except as noted in HPI and below Constitutional Constitutional: Reports as per HPI and Reports fatigue Cardiovascular Cardiovascular: Denies dyspnea Respiratory Respiratory: Reports cough and Denies dyspnea Endocrine Endocrine: Reports fatigue PFSH All Active Problems URI (upper respiratory infection) (Acute) Elevated blood pressure reading (Acute) Migraine headache (Chronic) Current vaping on some days (Acute ~05/2022) Hx of urinary frequency (Acute) trying OAB meds .. Bacterial vaginosis (Acute) #3, January 20222018 (?) before that? pH assoc? Probiotics seem to have helped. 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 Overactive bladder RX Oxybutynin effective (see chart note 05/16/2020) Quit smoking within past year Scoliosis of thoracic spine 01/2021 x-rays verified Surgical History Spinal Surgery (~2014) L4-5 decomp[place] causing LE [place] [place] [facility] [place] Family History Father Substance abuse EtOH Grandmother Essential hypertension Maternal Aunt Essential hypertension Social History Smoking/Tobacco Use Status: Current-Occasional Tobacco Type: e-cigarettes Quit status: has quit before Smoking risk assessment performed?: Yes Alcohol Intake: current Alcohol Intake frequency: a few times a month Drug use: Never Substance use type: does not use Adopted: No Household members: spouse Housing: apartment Number of Children: 0 Communication Needs: None Education Level: high school Do you need help understanding health information?: Never 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 [employer] Pets and animals: Yes Pets and animals: cat(s) Sexually active: Yes Do you think of yourself as: bisexual Current gender identity: female What is your relationship status?: How often do you talk on the phone with friends or family?: once per week How often do you get together with friends or relatives?: twice per week Do you belong to any clubs or organized social groups?: no Panel score (0-1 are the most socially isolated patients): 2 What type of physical activity do you participate in: walking Duration: 15-30 minutes/day Frequency: 3-4 times per week Special freeman needs: No Seatbelt use: always Drive intox or ride w/intox 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: No Do you feel safe at home: Yes Do you feel safe in your relationship?: Yes Exam Const General: cooperative and no acute distress HENMT Mouth: moist mucous membranes Throat: posterior oropharynx normal Eyes Conjunctivae: normal conjunctivae Sclera: normal sclerae Neck Neck: trachea midline and supple Resp Auscultation: clear to auscultation bilaterally, no rales, no rhonchi and no wheezes Cardio Rate: regular rate and not tachycardic Rhythm: regular rhythm GI Palpation: soft Auscultation: normal bowel sounds Skin General skin exam: no rashes or lesions noted Neuro General: patient alert, patient awake and tone normal Psych Appearance: grossly normal Mental Status: mental status grossly normal Course Vital Signs Vital signs: Vital Signs Temperature 36.8 C 02/26/23 18:03 Pulse 93 H 02/26/23 18:03 Respiratory Rate 18 02/26/23 18:03 Blood Pressure 148/102 H 02/26/23 18:03 Pulse Oximetry 98 02/26/23 18:03 Temperature 36.8 C 02/26/23 18:03 Temperature Source Temporal Artery Scan 02/26/23 18:03 Pulse 93 H 02/26/23 18:03 Respiratory Rate 18 02/26/23 18:03 Respiratory Effort Normal 02/26/23 18:05 Respiratory Depth Normal 02/26/23 18:05 Blood Pressure 148/102 H 02/26/23 18:03 Blood Pressure Position Sitting 02/26/23 18:03 Pulse Oximetry 98 02/26/23 18:03 Oxygen Delivery Method Room Air 02/26/23 18:03 Oxygen Flow Rate 0 02/26/23 18:03 Pain Level 4 02/26/23 18:03
[2023-02-26 18:36] LABS: Source Nasal/Nares
[2023-02-26 19:26] LABS: COVID-19 PCR Negative (Negative)
== END 2023-02-26 18:43 | disposition home or self-care (01) ==
PROVIDERS: Emergency Provider Student in an Organized Health Care Education/Training Program; PCP Nurse Practitioner Adult Health
DX: J06.9 Acute upper respiratory infection, unspecified (principal); R03.0 Elevated blood-pressure reading, without diagnosis of hypertension; R05.9 Cough, unspecified; R51.9 Headache, unspecified
CPT/HCPCS: 87635; 99283

== ENCOUNTER 2023-08-13 14:40 | Outpatient (REF) | payer OTHER, SELFPAY ==
[2023-08-13 14:55] LABS: Bilirubin Negative (Negative); Blood Moderate (Negative); Clarity Clear (Clear); Glucose Negative (Negative); Ketones Negative (Negative); Leukocyte Esterase Negative (Negative); Nitrite Negative (Negative); Urobilinogen 0.2 mg/dL (Up to 0.2); pH 5.5 (5-8)
[2023-08-13 15:03] LABS: Epithelial Cells Few HPF (Negative)
[2023-08-13 15:04] LABS: Bacteria Moderate HPF (Negative); C & S Indicated? Yes; Casts Negative LPF (Negative); Crystals Negative HPF (Negative); Mucus Negative (Negative)
== END 2023-08-13 14:41 | disposition home or self-care (01) ==
LOC: LBN 14:40
PROVIDERS: PCP Nurse Practitioner Adult Health; Visit Provider Nurse Practitioner Adult Health
DX: N89.8 Other specified noninflammatory disorders of vagina (principal); Z11.3 Encounter for screening for infections with a predominantly sexual mode of transmission; R30.0 Dysuria; R35.0 Frequency of micturition
CPT/HCPCS: 81003; 81015; 87086; 87480; 87510; 87660

== ENCOUNTER 2023-09-09 20:32 | Outpatient (REF) | payer OTHER, SELFPAY ==
[2023-09-19 14:04] LABS: Bacterial Vaginosis (BV) Negative (Negative); Candida glabrata Negative (Negative); Candida species group Negative (Negative); Trichomonas vaginalis Negative (Negative)
== END 2023-09-09 20:33 | disposition home or self-care (01) ==
LOC: LBN 20:32
PROVIDERS: PCP Nurse Practitioner Adult Health; Visit Provider Nurse Practitioner Adult Health
DX: N89.8 Other specified noninflammatory disorders of vagina (principal)
CPT/HCPCS: 81513; 87481; 87661

== ENCOUNTER 2024-01-23 13:04 | Outpatient (REF) | payer OTHER, SELFPAY | END 2024-01-23 13:05 | disposition home or self-care (01) | LOC: LBN 13:04 | PROVIDERS: PCP Nurse Practitioner Adult Health; Referring Provider Nurse Practitioner Adult Health; Visit Provider Nurse Practitioner Adult Health | DX: N76.0 Acute vaginitis (principal); N89.8 Other specified noninflammatory disorders of vagina; B96.89 Other specified bacterial agents as the cause of diseases classified elsewhere | CPT/HCPCS: 87480; 87510; 87660 ==

== ENCOUNTER 2024-04-15 13:31 | Outpatient (REF) | payer OTHER, SELFPAY ==
[2024-04-15 15:42] LABS: Bacteria Rare HPF (Negative); C & S Indicated? C&S Done As Ordered; Crystals Negative HPF (Negative); Epithelial Cells Rare HPF (Negative); Mucus Negative (Negative); RBC 0-2 HPF (0-2); WBC Negative HPF (0-5)
== END 2024-04-15 13:32 | disposition home or self-care (01) ==
LOC: LBN 13:31
PROVIDERS: PCP Nurse Practitioner Adult Health; Visit Provider Nurse Practitioner Family
DX: R30.0 Dysuria (principal); N89.8 Other specified noninflammatory disorders of vagina
CPT/HCPCS: 81015; 87086; 87480; 87510; 87660

== ENCOUNTER 2024-05-19 03:47 | Outpatient (CLI) | payer OTHER, SELFPAY ==
[2024-05-19 07:57] LABS: Abs Immature Grans 0.02 10^3/uL (0.0-0.06); Absolute Basophil Count 0.05 10^3/uL (0.0-0.2); Absolute Eosinophil Count 0.12 10^3/uL (0.0-0.7); Absolute Lymphocyte Count 2.24 10^3/uL (1.2-3.4); Absolute Monocyte Count 0.54 10^3/uL (0.1-0.8); Absolute Neutrophil Count 4.13 10^3/uL (1.2-6.7); Basophils % 0.7 %; Eosinophils % 1.7 %; HCT 38.2 % (36.0-46.0); HGB 12.1 g/dL (11.2-15.7); Immature Grans % 0.3 %; Lymphocytes % 31.5 %; MCHC 31.7 % (32.0-36.0); MCV 82 fL (80-95); MPV 9.3 fL (8.0-11.0); Monocytes % 7.6 %; Neutrophils % 58.2 %; Platelet Count 361 10^3/uL (130-400); RBC 4.65 10^6/uL (3.93-5.22); RDW 15.5 % (11.7-14.6); RDW-SD 46.6 fL
[2024-05-19 08:19] LABS: Hemoglobin A1C 5.4 % (<5.7)
[2024-05-19 08:22] LABS: ALT 29 U/L (14-59); AST 5 U/L (15-37); Albumin 3.7 g/dL (3.4-5.0); Alkaline Phosphatase 69 U/L (46-116); BUN 12 mg/dL (7-18); Bilirubin, Total 0.53 mg/dL (0.2-1.0); C-Reactive Protein 0.87 mg/dL (<or=0.5); CREATININE 0.6 mg/dL (0.55-1.02); Calcium 8.8 mg/dL (8.5-10.1); Chloride 105 mmol/L (98-107); Estimated GFR 118.49 (mL/min/1.73m2); Glucose 98 mg/dL (74-106); Potassium 3.8 mmol/L (3.5-5.1); Sodium 137 mmol/L (136-145); TSH 2.61 uIU/Ml (0.36-3.74); Total Protein 7.8 g/dL (6.4-8.2); Uric Acid 3.5 mg/dL (2.6-6.0)
[2024-05-19 09:05] LABS: Calculated LDL 112 mg/dL (<100); Cholesterol 171 mg/dL (<200); HDL Cholesterol 48 mg/dL (40-60); Triglyceride 57 mg/dL (<150); Vitamin B12 369 pg/mL (193-986); Vitamin D 25 Total 7.3 ng/mL (30-100)
[2024-05-26 13:42] LABS: Insulin, Free 14 mcIU/mL (3 - 25); Insulin, Total 15 mcIU/mL (3 - 25)
== END 2024-05-19 03:48 | disposition home or self-care (01) ==
PROVIDERS: PCP Nurse Practitioner Adult Health; Visit Provider Family Medicine
DX: E66.01 Morbid (severe) obesity due to excess calories (principal); Z68.42 Body mass index [BMI] 45.0-49.9, adult
CPT/HCPCS: 36415; 80053; 80061; 82306; 83525; 83527; 82607; 83036; 84443; 84550; 85025; 86140

== ENCOUNTER 2024-09-06 19:35 | Outpatient (REF) | payer OTHER, SELFPAY | END 2024-09-06 19:36 | disposition home or self-care (01) | LOC: NCHCN 19:35 | PROVIDERS: PCP Nurse Practitioner Adult Health; Visit Provider Nurse Practitioner Adult Health | DX: Z11.3 Encounter for screening for infections with a predominantly sexual mode of transmission (principal) | CPT/HCPCS: 87480; 87510; 87660 ==

== ENCOUNTER 2024-12-28 20:47 | Emergency (ER) | payer OTHER, SELFPAY ==
[2024-12-28 20:50] VITALS: BP 128/66; PULSE 111; RESP 20; TEMP 37; O2SAT 97
[2024-12-28 20:53] VITALS: BP 128/66; PULSE 111; RESP 20; TEMP 37; O2SAT 97
--- NOTE | 2024-12-28 20:55 | ED.GENADUL_ITS ---
Discharge Plan Disposition Patient Disposition: Home Condition: Stable Discharge Details Clinical Impression: Viral illness Primary Care Provider: Melodie Glaser ED Provider: Altaf Hammond Home Meds and New Rx's Prescriptions: Continued Wegovy 1.7 mg/0.75 mL pen injector 1.7 mg subcut QWEEK Qty: 3 2RF pantoprazole [Protonix] 40 mg tablet,delayed release (DR/EC) 40 mg PO .daily in AM PRN (Reason: heartburn) Qty: 90 3RF Rx Instructions: heartburn escitalopram oxalate 5 mg tablet 5 mg PO DAILY Qty: 90 0RF Rx Instructions: Med trial for mood ondansetron 4 mg tablet,disintegrating 4 mg PO TID PRN (Reason: nausea and vomiting) Qty: 15 0RF valacyclovir [Valtrex] 1 gram tablet 1,000 mg PO DAILY PRN Rx Instructions: Start RYAN after symptom onset. sumatriptan succinate [Imitrex] 50 mg tablet See Rx Instructions PO .COMPLEX PRN Rx Instructions: take 1 tab at onset of headache; if no relief may repeat 1 tab after at least 2 hrs; max = 4 tabs/24 hr orally PRN; Discharge Instructions Additional Instructions: You are likely suffering from a viral illness, your COVID and flu test were negative. If you are not improving within a week follow-up with your primary care provider. You can take 1000 mg of acetaminophen and 600 mg of ibuprofen every 6 hours as needed. If you feel more ill or have new symptoms such as severe shortness of breath or persistent vomiting return to the emergency department for reevaluation HPI General Mode of arrival: ambulatory . Date/Time Provider Initiated Documentation: 12/28/24 20:50 . Limitations to Documentation: no limitations . Information obtained by: patient . History of Present Illness 39 year old F presents to the emergency department with the chief complaint of body aches, chills, cough, sore throat, described as moderate, Patient reports no radiation. Patient started experiencing this day(s) (2) and it has been constant. No relieving factors improve symptom(s), No exacerbating factors reported . Patient notes denies chest pain, nausea/vomiting and shortness of breath. Patient did receive the following treatments prior to arrival, none Related Data Home Medications ?Medication ?Instructions ?Recorded ?Confirmed ondansetron 4 mg disintegrating 4 mg PO TID PRN nausea and 12/11/22 12/28/24 tablet vomiting #15 tab-caps escitalopram oxalate 5 mg tablet 5 mg PO DAILY #90 tabs 12/08/24 12/28/24 pantoprazole 40 mg tablet,delayed 40 mg PO .daily in AM PRN 12/08/24 12/28/24 release (Protonix) heartburn #90 tabs semaglutide (weight loss) 1.7 1.7 mg (0.75 mL) subcut QWEEK #3 mL 12/08/24 12/28/24 mg/0.75 mL subcutaneous pen injector (Wegovy) sumatriptan succinate 50 mg tablet See Rx Instructions PO .COMPLEX PRN 12/28/24 12/28/24 (Imitrex) valacyclovir 1 gram tablet 1,000 mg PO DAILY PRN 12/28/24 12/28/24 (Valtrex) Previous Rx's ?Medication ?Instructions ?Recorded ondansetron 4 mg disintegrating 4 mg PO TID PRN nausea and 12/11/22 tablet vomiting #15 tab-caps escitalopram oxalate 5 mg tablet 5 mg PO DAILY #90 tabs 12/08/24 pantoprazole 40 mg tablet,delayed 40 mg PO .daily in AM PRN 12/08/24 release (Protonix) heartburn #90 tabs semaglutide (weight loss) 1.7 1.7 mg (0.75 mL) subcut QWEEK #3 mL 12/08/24 mg/0.75 mL subcutaneous pen injector (Wegovy) Allergies Allergy/AdvReac Type Severity Reaction Status Date / Time promethazine Allergy Unknown Rash, Verified 12/28/24 20:54 tongue swelling General Stated Complaint: RespSymp ANA: 3 Review of Systems All systems reviewed & are unremarkable except as noted in HPI and below Constitutional Constitutional: Reports chills, Denies fever(s) and Denies weakness ENT Ears, Nose, Mouth, and Throat: Reports sore throat Cardiovascular Cardiovascular: Denies chest pain and Denies dyspnea Respiratory Respiratory: Reports cough and Denies dyspnea Gastrointestinal Gastrointestinal: Denies abdominal pain, Denies nausea and Denies vomiting Musculoskeletal Musculoskeletal: Denies joint swelling Neurologic Neurologic: Denies weakness Exam Const General: no acute distress Orientation: alert [facility] Head: normal to inspection Ears: external ears normal General nose exam: external nose normal Mouth: moist mucous membranes Throat: posterior oropharynx normal and uvula midline Eyes General: appearance normal, both eyes and all related structures Neck Neck: normal visual inspection Resp Effort & Inspection: normal respiratory effort and able to speak in complete sentences Auscultation: clear to auscultation bilaterally Cardio Rate: regular rate Skin General skin exam: no rashes or lesions noted Neuro General: patient alert and patient oriented x3 Extrem General: normal to inspection Psych Mental Status: mental status grossly normal Course Vital Signs Vital signs: Vital Signs Temperature 37.0 C 12/28/24 20:50 Pulse 111 H 12/28/24 20:50 Respiratory Rate 20 12/28/24 20:50 Blood Pressure 128/66 12/28/24 20:50 Pulse Oximetry 97 12/28/24 20:50 Temperature 37.0 C 12/28/24 20:53 Pulse 111 H 12/28/24 20:53 Respiratory Rate 20 12/28/24 20:53 Blood Pressure 128/66 12/28/24 20:53 Blood Pressure Position Sitting 12/28/24 20:53 Pulse Oximetry 97 12/28/24 20:53 Oxygen Delivery Method Room Air 12/28/24 20:53 Oxygen Flow Rate 0 12/28/24 20:53 Medical Decision Making 39-year-old female with a history of GERD, anxiety who comes in with 2 days of bodyaches and chills along with sore throat and dry cough. She denies any high fevers, vomiting, rashes. She denies any IV drug use. She is well-appearing on exam, she has no drooling or stridor. She has clear lung sounds, no JVD, soft nontender abdomen. Her symptoms seem viral in origin, will check a flu and COVID [id number]. Given well appearance, clear lung sounds without any fevers I do not feel any other lab work or imaging indicated. My suspicion for pneumonia is very low. [id number] flu and COVID are negative, she continues to appear well, using her phone and talking little sentences in no distress. But that she likely has another virus at the swab does not check for. She is stable for discharge she will follow-up with her PCP if not improving within a week and return precautions given Differential Diagnosis Differential Diagnosis: Flu, COVID, URI Quality:SDOH Health Related Social Needs: Health related social needs problems related to housin g/economic circumstances (Z59.89) PFSH All Active Problems (Updated 12/28/24 @ 21:48 by Altaf Hammond MD) Viral illness (Acute) GERD (gastroesophageal reflux disease) (Chronic) Anxiety (Chronic) Heartburn (Acute) Hyperhidrosis (Chronic) Managed with Botox by ENT Class 3 severe obesity due to excess calories in adult (Acute ~04/2023) Migraine headache (Chronic) Current vaping on some days (Acute ~05/2022) Hx of urinary frequency (Acute) trying OAB meds .. uses RX Oxybutynin PRN Medical History (Updated 12/28/24 @ 21:48 by Altaf Hammond MD) Urinary frequency Bacterial vaginosis #3, January 20222018 (?) before that? pH assoc? Probiotics seem to have helped. Vaginal discharge HSV-2 seropositive Right anterior knee pain (~04/2023) Marital stress (~04/2023) Tonsillar hypertrophy Tonsil stone Cutaneous abscess of axilla Rt, acne-like vs boil/faruncle (Hx boil)(Hx hyperhydr, Tx with botox) Post-COVID chronic headache (~05/2022) Microscopic hematuria (01/17/16) 2015 & 2019 Quit smoking within past year COVID-19 (~06/20/22) Scoliosis of thoracic spine 01/2021 x-rays verified Hyperhidrosis of axilla Failed OTC antiperspirants & RX-strength (burned) & oral Glyco; BOTOX effective! 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) Lab POS 04/2014 Constipation Depression Surgical History Spinal Surgery (~2014) L4-5 decompression for herniated disc causing LE pain ([facility] [place]) Family History (Updated 11/26/23 @ 11:57 by Melodie Glaser NP) Father Substance abuse EtOH Grandmother Essential hypertension Colon cancer Maternal Aunt Essential hypertension Social History Smoking/Tobacco Use Status: Current-Occasional Tobacco Type: e-cigarettes Tobacco: How many years used: 4 Smokeless tobacco user: other (Vaping) Quit status: considering quitting Smoking risk assessment performed?: Yes Alcohol Intake: current Alcohol Intake frequency: a few times a month Drug use: Never Substance use type: does not use Adopted: No Caregiver/Support person: No Foster care: No Household members: spouse Housing: apartment Number of Children: 0 Communication Needs: None Education Level: high school Do you need help understanding health information?: Never 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 [employer] Pets and animals: Yes Pets and animals: cat(s) Sexually active: Yes Do you think of yourself as: bisexual Current gender identity: female What is your relationship status?: How often do you talk on the phone with friends or family?: once per week How often do you get together with friends or relatives?: twice per week How often do you attend mosque or zoroastrianism services?: decline to answer Do you belong to any clubs or organized social groups?: no Panel score (0-1 are the most socially isolated patients): 2 What type of physical activity do you participate in: walking Duration: 15-30 minutes/day Frequency: 3-4 times per week Special freeman needs: No Seatbelt use: always Helmet use: No (N/A) Drive intox or ride w/intox national dedicated truck driver: No Do you feel safe at home: Yes Do you feel safe in your relationship?: Yes PAWSS Have you Been Recently Intoxicated or Drunk Within the Last 30 days?: No Have you Ever Experienced Previous Episodes of Alcohol Withdrawal?: No Have you ever Experienced Withdrawal Seizures?: No Have you ever Experienced Delirium Tremens(DT)s?: No Have you ever undergone Alcohol Rehabilitation Treatment (i.e, inpt ot outpatient treatment programs)?: No Have you ever Experienced Blackouts?: No Have you ever Combined Alcohol with other Downers within the last 90 days?: No Have you ever Combined Alcohol with any other Substance of Abuse during the last 90 days?: No Positive Blood Alcohol level on Presentation? [PCS.BAL]: No Evidence of Increased Autonomic Activity (i.e. HR>120, tremor, sweating, agitation, nausea)?: No Result: 0
[2024-12-28 22:03] VITALS: BP 146/89; PULSE 100; RESP 18; TEMP 37.2; O2SAT 95
== END 2024-12-28 22:05 | disposition home or self-care (01) ==
PROVIDERS: Emergency Provider Emergency Medicine; PCP Nurse Practitioner Adult Health
DX: B34.9 Viral infection, unspecified (principal); F17.290 Nicotine dependence, other tobacco product, uncomplicated; Z79.899 Other long term (current) drug therapy
CPT/HCPCS: 87426; 99283

== ENCOUNTER 2025-01-18 16:15 | Outpatient (REF) | payer OTHER, SELFPAY | END 2025-01-18 16:16 | disposition home or self-care (01) | LOC: LBN 16:15 | PROVIDERS: PCP Nurse Practitioner Adult Health; Visit Provider Nurse Practitioner Adult Health | DX: Z11.3 Encounter for screening for infections with a predominantly sexual mode of transmission (principal) | CPT/HCPCS: 87480; 87510; 87660 ==

== ENCOUNTER 2025-04-05 08:29 | Outpatient (CLI) | payer OTHER, SELFPAY ==
--- NOTE | 2025-04-05 07:45 | DI.RAD_ITS ---
Exam(s) XR KNEE LT 3V AP,LAT,DORYS EXAM: XR KNEE LT 3V AP,LAT,DORYS CLINICAL HISTORY: evaluate knee pain. TECHNIQUE: 2D digital imaging was performed of the left knee. Three images were obtained. Merchant,AP and lateral views were obtained. COMPARISON: There are no priors for comparison. FINDINGS: BONES: No acute fracture is present. No bony destructive lesion is seen. JOINTS: The knee is normally aligned. There is a small joint effusion. No loose body. SOFT TISSUE: Normal. IMPRESSION: There appears to be a small joint effusion. DATA REPOSITORY: RADIATION DOSE DELIVERED:
== END 2025-04-05 08:30 | disposition home or self-care (01) ==
LOC: DIORS 08:29
PROVIDERS: PCP Nurse Practitioner Adult Health; Visit Provider Student in an Organized Health Care Education/Training Program
DX: M23.92 Unspecified internal derangement of left knee (principal)
CPT/HCPCS: 73562

== ENCOUNTER 2025-04-14 01:23 | Outpatient (CLI) | payer OTHER, SELFPAY ==
--- NOTE | 2025-04-14 08:13 | DI.MRI_ITS ---
Exam(s) MR LOWER JOINT LT WO EXAM: MR LOWER JOINT LT WO CLINICAL HISTORY: LEFT KNEE pain; ?lat meniscus, internal derangement lt knee,m23.92. TECHNIQUE: Multiplanar multisequence MRI was performed. COMPARISON: CR XR KNEE LT 3V AP,LAT,DORYS from 04/05/2025 FINDINGS: The examination is limited due to patient motion artifact. BONES: There is no fracture or contusion pattern. JOINTS: There is mild thinning of the articular cartilage overlying the patella. There is narrowing of the lateral patellofemoral joint space. There is a small amount of fluid in the joint space. TENDONS: Extensor mechanism: Unremarkable. Medial retinaculum: Unremarkable. Lateral retinaculum: Unremarkable. Popliteus: Unremarkable. MUSCLES: Unremarkable. MENISCI: The medial meniscus is unremarkable. The lateral meniscus is unremarkable. SOFT TISSUES: There is a small popliteal cyst present. LIGAMENTS: Anterior Cruciate: Unremarkable. Posterior Cruciate: Unremarkable. Medial Collateral:Unremarkable. Lateral Collateral: Unremarkable. OTHER: IMPRESSION: 1. There is no evidence of a meniscal or ligament tear. 2. Mild arthrosis of the patellofemoral joint. 3. Small popliteal cyst. DATA REPOSITORY:
== END 2025-04-14 01:43 ==
PROVIDERS: PCP Nurse Practitioner Adult Health; Visit Provider Nurse Practitioner Adult Health
DX: M23.92 Unspecified internal derangement of left knee (principal)
CPT/HCPCS: 73721

== ENCOUNTER 2025-05-04 16:20 | Outpatient (REF) | payer OTHER, SELFPAY ==
[2025-05-04 17:27] LABS: Glucose Negative (Negative)
[2025-05-04 17:40] LABS: C & S Indicated? No; WBC Negative HPF (0-5)
== END 2025-05-04 16:21 | disposition home or self-care (01) ==
LOC: LBN 16:20
PROVIDERS: PCP Nurse Practitioner Adult Health; Visit Provider Nurse Practitioner Adult Health
DX: R30.0 Dysuria (principal); N92.6 Irregular menstruation, unspecified
CPT/HCPCS: 81003; 81015

== ENCOUNTER 2025-06-08 07:15 | Outpatient (CLI) | payer OTHER, SELFPAY ==
[2025-06-08 07:55] LABS: Abs Immature Grans 0.02 10^3/uL (0.0-0.06); HCT 38.6 % (36.0-46.0); HGB 11.9 g/dL (11.2-15.7); Immature Grans % 0.2 %; MCH 25.1 pg (27.0-33.0); MCHC 30.8 % (32.0-36.0); MCV 81 fL (80-95); MPV 9.1 fL (8.0-11.0); Platelet Count 393 10^3/uL (130-400); RBC 4.74 10^6/uL (3.93-5.22); RDW 14.5 % (11.7-14.6); RDW-SD 42.5 fL; WBC 8.11 10^3/uL (4.4-10.8)
[2025-06-08 08:39] LABS: Calculated LDL 132 mg/dL (<100); Cholesterol 192 mg/dL (<200); HDL Cholesterol 46 mg/dL (>or=50); TSH (W/Ref FT4) 2.38 uIU/mL (0.36-3.74); Triglyceride 71 mg/dL (<150)
[2025-06-08 08:49] LABS: ALT 27 U/L (14-59); AST 7 U/L (15-37); Albumin 3.7 g/dL (3.4-5.0); Alkaline Phosphatase 76 U/L (46-116); Anion Gap 7.0 mmol/L (3-11); BUN 11 mg/dL (7-18); Bilirubin, Total 0.4 mg/dL (0.2-1.0); CO2 30.0 mmol/L (21.0-32.0); Calcium 9.0 mg/dL (8.5-10.1); Chloride 102 mmol/L (98-107); Estimated GFR 123.04 (mL/min/1.73m2); Glucose 91 mg/dL (74-106); Potassium 4.0 mmol/L (3.5-5.1); Sodium 139 mmol/L (136-145); Total Protein 7.7 g/dL (6.4-8.2); Vitamin D 25 Total 10 ng/mL (30-100)
[2025-06-08 10:39] LABS: Glucose Negative (Negative)
[2025-06-08 11:16] LABS: C & S Indicated? No; RBC >50 HPF (0-2); WBC 0-2 HPF (0-5)
== END 2025-06-08 07:16 | disposition home or self-care (01) ==
LOC: LBO 07:15
PROVIDERS: Obstetrics & Gynecology; PCP Nurse Practitioner Adult Health; Visit Provider Nurse Practitioner Adult Health
DX: N92.0 Excessive and frequent menstruation with regular cycle (principal); N95.1 Menopausal and female climacteric states; N92.4 Excessive bleeding in the premenopausal period; R31.29 Other microscopic hematuria; E66.01 Morbid (severe) obesity due to excess calories; Z72.89 Other problems related to lifestyle; Z51.81 Encounter for therapeutic drug level monitoring
CPT/HCPCS: 80053; 80061; 82306; 81003; 81015; 84443; 85025